=== PATIENT | male | born 1935 | race Caucasian/White ===

== ENCOUNTER 2016-08-16 11:00 | Inpatient (IN) | payer MEDICARE, OTHER ==
[~2016-08-16 11:00] MED LIST: ENOXAPARIN SODIUM INJ 40 MG/0.4 ML DISP.SYRIN SUBCUT ONE
--- NOTE | 2016-08-16 11:23 | ER Document Report ---
ED Fever - General Stated Complaint: WEAKNESS Mode of Arrival: Medic Information source: Patient, Relative Cannot obtain history due to: Dementia - MILD TRAVEL OUTSIDE OF THE [place] IN LAST 30 DAYS: No - HPI Onset: This morning Onset/Duration: Sudden Quality of pain: No pain Severity: Moderate Context: Congestion, Cough Associated symptoms: Chills, Nonproductive cough, Fever, Sweating, Weakness. denies: Diarrhea, Vomiting, Shortness of breath Similar symptoms previously: Yes - NOT RECENT Recently seen / treated by doctor: No - Related Data Allergies/Adverse Reactions: No Known Allergies Allergy (Verified 08/16/16 11:25) Home Medications: Current Home Medications Apixaban [Eliquis 5 mg Tablet] 1 tab PO BID 08/16/16 [History] Docusate Sodium 100 mg PO BID 08/16/16 [History] Folic Acid/Vit Bcomp,C [B-Complex with Vit C Tablet] 400 mcg PO DAILY 08/16/16 [ History] Mineral Oil/Petrolatum,White [Eucerin Creme] 1 applic TOP BID 08/16/16 [History] Rivastigmine [Exelon 4.6 Mg/24 Hr Transdermal Patch] 1 each TD DAILY 08/16/16 [ History] Triamcinolone Acetonide [Aristocort 0.5% Cream 15 gm] 1 applic TOP BID 08/16/16 [History] Past Medical History - General Information source: Patient, Relative - Social History Smoking Status: Former Smoker Cigarette use (# per day): No Chew tobacco use (# tins/day): No Smoking Education Provided: No Frequency of alcohol use: None Drug Abuse: None Lives with: [facility] [place] [place] Family History: Reviewed & Not Pertinent Patient has suicidal ideation: No Patient has homicidal ideation: No - Past Medical History Cardiac Medical History: Reports: Hx Coronary Artery Disease - BY PASS/ HX A-FIB , Hx Hypertension Denies: Hx Heart Attack Pulmonary Medical History: Denies: Hx Asthma, Hx Bronchitis, Hx COPD, Hx Pneumonia EENT Medical History: Reports: None Neurological Medical History: Denies: Hx Cerebrovascular Accident, Hx Seizures Endocrine Medical History: Reports: Hx Hypothyroidism Renal/ Medical History: Reports: None Malignancy Medical History: Reports None GI Medical History: Reports: None Musculoskeltal Medical History: Reports Hx Arthritis - GENERALIZED Psychiatric Medical History: Reports: None Past Surgical History: Reports: Hx Carotid Endarterectomy, Hx Coronary Artery Bypass Graft, Hx Orthopedic Surgery. Denies: Hx Pacemaker - Immunizations Hx Diphtheria, Pertussis, Tetanus Vaccination: Yes Hx Pneumococcal Vaccination: 07/19/15 Review of Systems - Review of Systems Constitutional: See HPI EENT: No symptoms reported Cardiovascular: No symptoms reported Respiratory: See HPI Gastrointestinal: No symptoms reported Genitourinary: No symptoms reported Musculoskeletal: No symptoms reported Skin: No symptoms reported Neurological/Psychological: No symptoms reported Physical Exam - Vital signs Vitals: Temp Pulse Resp BP Pulse Ox 102.2 F H 92 20 126/55 H 87 L 08/16/16 11:00 08/16/16 11:00 08/16/16 11:00 08/16/16 11:00 08/16/16 11:00 Interpretation: Hypoxic, Febrile - General General appearance: Appears well, Alert In distress: None - HEENT Head: Normocephalic Eyes: Normal Conjunctiva: Normal Ears: Normal Nasal: Normal Mouth/Lips: Normal Mucous membranes: Normal Pharynx: Normal Neck: Normal - Respiratory Respiratory status: No respiratory distress Chest status: Nontender Breath sounds: Productive cough, Rales - BOTH BASES AND R. UPPER LOBE. No: Wheezing - Cardiovascular Rhythm: Irregularly irregular - Abdominal Inspection: Normal Distension: No distension Bowel sounds: Hypoactive Tenderness: Nontender - Extremities General upper extremity: Normal inspection General lower extremity: Edema - 1+, BILAT. (CHRONIC). No: Normal inspection - Neurological Neuro grossly intact: Yes Cognition: Normal Orientation: AAOx4 - Psychological Associated symptoms: Normal affect, Normal mood - Skin Skin Temperature: Warm Skin Moisture: Dry Skin Color: Normal Skin Turgor: Elastic Skin irregularity: Rash - SCALP Course - Vital Signs Vital signs: Temp Pulse Resp BP Pulse Ox 102.2 F H 92 20 125/62 90 L 08/16/16 11:00 08/16/16 11:00 08/16/16 13:16 08/16/16 13:16 08/16/16 13:16 - Laboratory Result Diagrams: 08/16/16 11:15 08/16/16 11:15 Laboratory results interpreted by me: 08/16/16 08/16/16 08/16/16 11:15 11:15 11:15 WBC 11.9 H RBC 4.10 L Hgb 12.4 L Hct 37.8 L RDW 15.8 H Seg Neutrophils % 88.2 H Lymphocytes % 4.1 L Absolute Neutrophils 10.5 H PT 23.5 H VBG pH Potassium 3.4 L Chloride 97 L BUN 28 H Creatinine 1.53 H Est GFR ( Amer) 53 L Est GFR (Non-Af Amer) 44 L Glucose 142 H Lactic Acid Total Bilirubin 1.6 H NT-Pro-B Natriuret Pep Albumin 3.2 L Urine Protein Urine Ascorbic Acid 08/16/16 08/16/16 08/16/16 11:15 11:15 12:23 WBC RBC Hgb Hct RDW Seg Neutrophils % Lymphocytes % Absolute Neutrophils PT VBG pH 7.47 H Potassium Chloride BUN Creatinine Est GFR ( Amer) Est GFR (Non-Af Amer) Glucose Lactic Acid 2.7 H Total Bilirubin NT-Pro-B Natriuret Pep 855 H Albumin Urine Protein Urine Ascorbic Acid 08/16/16 13:15 WBC RBC Hgb Hct RDW Seg Neutrophils % Lymphocytes % Absolute Neutrophils PT VBG pH Potassium Chloride BUN Creatinine Est GFR ( Amer) Est GFR (Non-Af Amer) Glucose Lactic Acid Total Bilirubin NT-Pro-B Natriuret Pep Albumin Urine Protein 30 H Urine Ascorbic Acid 20 H - EKG Interpretation by [place] EKG shows normal: [place], QRS Complexes. abnormal: Sinus rhythm, Intervals, ST-T Waves - LAT. T WAVE INVERSIONS, BORDERLINE LONG QT Rate: Normal Rhythm: NSR, A.Fib P Waves: LAE - Consults DR. BEACH Time consulted: 12:00 Reason for consultation: 08/16/16 12:01 CONSIDER FOR ADMISSION Consulted provider: will come to ER Discharge - Discharge Clinical Impression: Hypoxemia, Atrial fibrillation with controlled ventricular response Pneumonia Qualifiers: Pneumonia type: due to unspecified organism Laterality: right Lung location: upper lobe of lung Qualified Code(s): J18.1 - Lobar pneumonia, unspecified organism Condition: Fair Disposition: ADMITTED INPATIENT Admitting Provider: Hospitalist Unit Admitted: Telemetry
[2016-08-16 11:38] LABS: ABSOLUTE LYMPHOCYTES (AUTO) 0.5 10^3/uL (0.5-4.7); ABSOLUTE MONOCYTES (AUTO) 0.9 10^3/uL (0.1-1.4); ABSOLUTE NEUT (AUTO) 10.5 10^3/uL (1.7-8.2); BASOPHILS % (AUTO) 0.2 % (0-2); HEMATOCRIT 37.8 % (37.9-51.0); HEMOGLOBIN 12.4 g/dL (13.5-17.0); HGB HCT DIFFERENCE -0.6; LYMPHOCYTES % (AUTO) 4.1 % (13-45); MEAN CORPUSCULAR HEMOGLOBIN 30.3 pg (27.0-33.4); MEAN CORPUSCULAR HGB CONC 32.9 g/dL (32.0-36.0); MEAN CORPUSCULAR VOLUME 92 fl (80-97); MONOCYTES % (AUTO) 7.5 % (3-13); RED CELL DISTRIBUTION WIDTH 15.8 % (11.5-14.0); SEGMENTED NEUTROPHILS % (AUTO) 88.2 % (42-78); WHITE BLOOD COUNT 11.9 10^3/uL (4.0-10.5)
[2016-08-16 11:41] LABS: PROTHROMBIN TIME 23.5 SEC (11.4-15.4)
[2016-08-16] MEDS ORDERED: LEVOFLOXACIN 750 MG/D5W RTU 150 ML IV ONE (11:42)
[2016-08-16 11:56] LABS: ALANINE AMINOTRANSFERASE 31 U/L (21-72); ALBUMIN 3.2 g/dL (3.5-5.0); ALKALINE PHOSPHATASE 61 U/L (38-126); ANION GAP 16 (5-19); ASPARTATE AMINO TRANSFERASE 32 U/L (17-59); BILIRUBIN,TOTAL 1.6 mg/dL (0.2-1.3); BLOOD UREA NITROGEN 28 mg/dL (7-20); CALCIUM 8.5 mg/dL (8.4-10.2); CARBON DIOXIDE 25 mmol/L (22-30); CHLORIDE 97 mmol/L (98-107); CREATININE RESULT 1.53 mg/dL (0.52-1.25); GLUCOSE 142 mg/dL (75-110); POTASSIUM 3.4 mmol/L (3.6-5.0); SODIUM 138.1 mmol/L (137-145); TOTAL PROTEIN 6.4 g/dL (6.3-8.2)
[2016-08-16] MEDS ORDERED: NORMAL SALINE 1000 ML 300 ML IV ONE (12:06)
[2016-08-16 12:44] LABS: VENOUS BLOOD BASE EXCESS 3.9 mmol/L; VENOUS BLOOD HCO3 27.7 mmol/L (20-32); VENOUS BLOOD PH 7.47 (7.30-7.42)
[2016-08-16 13:33] LABS: APPEARANCE,URINE CLEAR; BILIRUBIN,URINE NEGATIVE (NEGATIVE); GLUCOSE, URINE NEGATIVE (NEGATIVE); KETONES,URINE NEGATIVE (NEGATIVE); LEUKOCYTE ESTERASE,URINE NEGATIVE (NEGATIVE); NITRITE,URINE NEGATIVE (NEGATIVE); PROTEIN,URINE 30 mg/dL (NEGATIVE); URINE SPECIFIC GRAVITY 1.013; UROBILINOGEN,URINE NEGATIVE mg/dL (<2.0)
[2016-08-16] MEDS ORDERED: IPRATROPIUM/ALBUTEROL 0.5-2.5 MG/3 ML AMPUL NEB PRN (13:56)
[2016-08-16] MEDS ORDERED: ACETAMINOPHEN 325 MG TABLET PO PRN (14:01)
[2016-08-16] MEDS ORDERED: POTASSIUM CHLORIDE 10 MEQ TABLET.SA PO ONE (14:16)
[2016-08-16] MEDS ORDERED: NORMAL SALINE 1000 ML 1,000 ML IV ONE (14:29)
--- NOTE | 2016-08-16 14:34 | PDOC H&P ---
History of Present Illness Admission Date/PCP: FREDY RICKS Patient complains of: Shortness of breath History of Present Illness: ANICETO LAYNE is a 81 year old male, with hypertension, coronary artery disease, atrial fibrillation sent to the hospital from the [facility] home due to cough 2 days duration. It is productive of [place] sputum with associated chest congestion, intermittent wheezing, and shortness of breath. Patient denies paroxysmal nocturnal dyspnea, dyspnea, chest pain, nor any increase in lower extremity swelling. There is no definite fever but he feels warm at times. There is no diarrhea, sore throat, sinus congestion, sneezing. The patient reported his symptoms to the staff and the patient was sent to the hospital for evaluation where chest x-ray revealed patchy infiltrates bilateral more on the right with a fever of 102. Intravenous fluid was given likewise Levaquin and was referred for admission. Past Medical History Cardiac Medical History: Reports: Atrial Fibrillation, Congestive Heart Failure , Coronary Artery Disease - BY PASS/ HX A-FIB, Hyperlipidema, Hypertension Denies: Myocardial Infarction Pulmonary Medical History: Denies: Asthma, Bronchitis, Chronic Obstructive Pulmonary Disease (COPD), Pneumonia EENT Medical History: Reports: None Neurological Medical History: Denies: Seizures Endocrine Medical History: Reports: Hypothyroidism Renal/ Medical History: Reports: None Malignancy Medical History: Reports: None GI Medical History: Reports: None Musculoskeltal Medical History: Reports: Arthritis - GENERALIZED Psychiatric Medical History: Reports: None Hematology: Reports: Anemia - B 12 SHOTS Past Surgical History Past Surgical History: Reports: Cardiac Catheterization, Carotid Endarterectomy , Coronary Artery Bypass Graft, Orthopedic Surgery Denies: Pacemaker Social History Information Source: Patient Lives with: [facility] [place] Smoking Status: Former Smoker Frequency of Alcohol Use: None Hx Recreational Drug Use: No Drugs: None Hx Prescription Drug Abuse: No Family History Family History: None Parental Family History Reviewed: Yes Children Family History Reviewed: Yes Sibling(s) Family History Reviewed.: Yes Medication/Allergy Home Medications: Amiodarone HCl 200 mg PO DAILY 05/12/16 Atorvastatin Calcium 80 mg PO QHS 05/12/16 Ciclopirox Olamine [Ciclopirox] 1 applic TOP BID PRN 05/12/16 Furosemide [Lasix 80 mg Tablet] 1 tab PO DAILY 05/12/16 Levothyroxine Sodium [Synthroid] 175 mcg PO DAILY 05/12/16 Metoprolol Tartrate [Lopressor 50 mg Tablet] 50 mg PO DAILY 05/12/16 Potassium Chloride [Klor-Con 10] 20 meq PO DAILY 05/12/16 Tamsulosin HCl [Flomax 0.4 mg Cap.sr] 0.4 mg PO QHS 05/12/16 Triamterene/Hydrochlorothiazid [Maxzide 75 mg-50 mg Tablet] 0.5 tab PO DAILY Apixaban [Eliquis 5 mg Tablet] 1 tab PO BID 08/16/16 Docusate Sodium 100 mg PO BID 08/16/16 Folic Acid/Vit Bcomp,C [B-Complex with Vit C Tablet] 400 mcg PO DAILY 08/16/16 Mineral Oil/Petrolatum,White [Eucerin Creme] 1 applic TOP BID 08/16/16 Rivastigmine [Exelon 4.6 Mg/24 Hr Transdermal Patch] 1 each TD DAILY 08/16/16 Triamcinolone Acetonide [Aristocort 0.5% Cream 15 gm] 1 applic TOP BID 08/16/16 Allergies/Adverse Reactions: No Known Allergies Allergy (Verified 08/16/16 11:25) Review of Systems Constitutional: PRESENT: weakness - Generalized. ABSENT: chills, fever(s), headache(s), weight gain, weight loss Eyes: ABSENT: visual disturbances Ears: ABSENT: hearing changes Nose, Mouth, and Throat: ABSENT: mouth pain, sore throat Cardiovascular: PRESENT: dyspnea on exertion, palpitations. ABSENT: chest pain , edema, orthropnea Respiratory: PRESENT: cough, sputum - [place]. ABSENT: hemoptysis Gastrointestinal: ABSENT: abdominal pain, constipation, diarrhea, hematemesis, hematochezia, melena, nausea, vomiting Genitourinary: ABSENT: dysuria, hematuria Musculoskeletal: ABSENT: joint swelling Integumentary: ABSENT: pruritus, rash, wounds Neurological: ABSENT: abnormal gait, abnormal speech, confusion, dizziness, focal weakness, syncope Psychiatric: ABSENT: anxiety, depression, homidical ideation, suicidal ideation Endocrine: ABSENT: cold intolerance, heat intolerance, polydipsia, polyuria Hematologic/Lymphatic: ABSENT: easy bleeding, easy bruising Physical Exam Vital Signs: Temp Pulse Resp BP Pulse Ox 102.2 F H 92 20 125/62 90 L 08/16/16 11:00 08/16/16 11:00 08/16/16 13:16 08/16/16 13:16 08/16/16 13:16 Intake & Output 08/15/16 08/16/16 08/17/16 06:59 06:59 06:59 Weight 118.115 kg General appearance: PRESENT: no acute distress, cooperative, mild distress, other - Overweight Head exam: PRESENT: atraumatic, normocephalic Eye exam: PRESENT: conjunctiva pink, EOMI, PERRLA. ABSENT: scleral icterus Ear exam: PRESENT: normal external ear exam. ABSENT: drainage Mouth exam: PRESENT: moist, neck supple, tongue midline Throat exam: ABSENT: post pharyngeal erythema, tonsillar erythema, tonsillar exudate Neck exam: ABSENT: carotid bruit, JVD, lymphadenopathy, thyromegaly Respiratory exam: PRESENT: decreased breath sounds - Bilateral, rales - Right- sided posteriorly. ABSENT: rhonchi, wheezes Cardiovascular exam: PRESENT: irregular rhythm, +S1, +S2. ABSENT: diastolic murmur, gallop, rubs, systolic murmur Pulses: PRESENT: normal dorsalis pedis pul Vascular exam: PRESENT: normal capillary refill GI/Abdominal exam: PRESENT: normal bowel sounds, soft. ABSENT: distended, guarding, mass, organolmegaly, rebound, tenderness Rectal exam: PRESENT: deferred Extremities exam: PRESENT: full ROM, +1 edema - Bilateral. ABSENT: calf tenderness, clubbing Neurological exam: PRESENT: alert, awake, oriented to person, oriented to place , oriented to time, oriented to situation Psychiatric exam: PRESENT: appropriate affect, normal mood. ABSENT: homicidal ideation, suicidal ideation Skin exam: PRESENT: dry, warm. ABSENT: cyanosis, rash Results Laboratory Results: 08/16/16 11:15 08/16/16 11:15 08/16/16 08/16/16 08/16/16 11:15 11:15 11:15 WBC 11.9 H RBC 4.10 L Hgb 12.4 L Hct 37.8 L MCV 92 MCH 30.3 MCHC 32.9 RDW 15.8 H Plt Count 283 Seg Neutrophils % 88.2 H Lymphocytes % 4.1 L Monocytes % 7.5 Eosinophils % 0.0 Basophils % 0.2 Absolute Neutrophils 10.5 H Absolute Lymphocytes 0.5 Absolute Monocytes 0.9 Absolute Eosinophils 0.0 Absolute Basophils 0.0 VBG pH VBG pCO2 VBG HCO3 VBG Base Excess Sodium 138.1 Potassium 3.4 L Chloride 97 L Carbon Dioxide 25 Anion Gap 16 BUN 28 H Creatinine 1.53 H Est GFR ( Amer) 53 L Est GFR (Non-Af Amer) 44 L Glucose 142 H Lactic Acid 2.7 H Calcium 8.5 Total Bilirubin 1.6 H AST 32 ALT 31 Alkaline Phosphatase 61 Total Protein 6.4 Albumin 3.2 L Urine Color Urine Appearance Urine pH Ur Specific [place] Urine Protein Urine Glucose (UA) Urine Ketones Urine Blood Urine Nitrite Ur Leukocyte Esterase Urine WBC (Auto) Urine RBC (Auto) 08/16/16 08/16/16 12:23 13:15 WBC RBC Hgb Hct MCV MCH MCHC RDW Plt Count Seg Neutrophils % Lymphocytes % Monocytes % Eosinophils % Basophils % Absolute Neutrophils Absolute Lymphocytes Absolute Monocytes Absolute Eosinophils Absolute Basophils VBG pH 7.47 H VBG pCO2 39.0 VBG HCO3 27.7 VBG Base Excess 3.9 Sodium Potassium Chloride Carbon Dioxide Anion Gap BUN Creatinine Est GFR ( Amer) Est GFR (Non-Af Amer) Glucose Lactic Acid Calcium Total Bilirubin AST ALT Alkaline Phosphatase Total Protein Albumin Urine Color YELLOW Urine Appearance CLEAR Urine pH 5.0 Ur Specific [place] 1.013 Urine Protein 30 H Urine Glucose (UA) NEGATIVE Urine Ketones NEGATIVE Urine Blood NEGATIVE Urine Nitrite NEGATIVE Ur Leukocyte Esterase NEGATIVE Urine WBC (Auto) 0 Urine RBC (Auto) 1 08/16/16 11:15 NT-Pro-B Natriuret Pep 855 H Impressions: Chest X-Ray 08/16/16 11:07 IMPRESSION: Pneumonia or asymmetric edema. Assessment & Plan - Diagnosis (1) Pneumonia Qualifiers: Pneumonia type: due to unspecified organism Laterality: right Lung location: upper lobe of lung Qualified Code(s): J18.1 - Lobar pneumonia, unspecified organism Is this a current diagnosis for this admission?: Yes (2) Hypokalemia Is this a current diagnosis for this admission?: Yes (3) Hyperglycemia Is this a current diagnosis for this admission?: Yes (4) Atrial fibrillation with controlled ventricular response Is this a current diagnosis for this admission?: Yes (5) Hypertension Qualifiers: Hypertension type: essential hypertension Qualified Code(s): I10 - Essential (primary) hypertension Is this a current diagnosis for this admission?: Yes (6) Hypothyroidism (acquired) Is this a current diagnosis for this admission?: Yes (7) Coronary artery disease Qualifiers: Coronary Disease-Associated Artery/Lesion type: [place] artery [place] vs. transplanted heart: [place] heart Associated angina: without angina Qualified Code(s): I25.10 - Atherosclerotic heart disease of [place] coronary artery without angina pectoris Is this a current diagnosis for this admission?: Yes - Time Time Spent: 50 to 70 Minutes Anticipated discharge: Home Within: within 72 hours - Inpatient Certification Based on my medical assessment, after consideration of the patient's comorbidities, presenting symptoms, or acuity I expect that the services needed warrant INPATIENT care.: Yes I certify that my determination is in accordance with my understanding of Medicare's requirements for reasonable and necessary INPATIENT services [42 CFR 412.3e].: Yes Medical Necessity: Significant Comorbidiites Make Outpatient Treatment Too Risky , Need Close Monitoring Due to Risk of Patient Decompensation, Need For IV Fluids, Need For Continuous Telemetry Monitoring, Need for IV Antibiotics 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 We will follow the pneumonia pathway. Blood culture and sputum cultures will be done. Begin antibiotics with cefepime and Levaquin. In the meantime we will replace potassium. Monitor electrolytes and obtain hemoglobin A1c. Supplemental oxygen will be continued and DVT prophylaxis with Lovenox will be started. Continue long-term anticoagulation. Further testing depends on the initial evaluation and response to treatment as outlined above.
[2016-08-16] MEDS ORDERED: ENOXAPARIN SODIUM INJ 40 MG/0.4 ML DISP.SYRIN SUBCUT ONE ×2 (15:45→16:30)
[2016-08-16] MEDS: NORMAL SALINE 1000 ML 1,000 ML IV PRN (16:05)
[2016-08-16] MEDS: LEVALBUTEROL HCL NEB 1.25 MG/3 ML AMPUL NEB PRN ×3 (16:06→23:43)
[2016-08-16] MEDS ORDERED: ASPIRIN 81 MG TABLET, CHEWABLE PO ONE (19:00)
[2016-08-16 20:24] LABS: CREATINE KINASE MB 2.3 ng/mL (<4.55); TROPONIN I 0.029 ng/mL
[2016-08-16] MEDS ORDERED: CEFEPIME 2 GM/D5W RTU 50 ML IV SCH (22:00)
[2016-08-16] MEDS: GUAIFENESIN 600 MG TABLET.SA PO SCH (22:01)
[2016-08-16] MEDS: APIXABAN 5 MG TABLET PO SCH (22:02)
[2016-08-16] MEDS: ATORVASTATIN CALCIUM 80 MG TABLET PO SCH (22:02)
[2016-08-16] MEDS: TAMSULOSIN HCL 0.4 MG CAP.SR.24H PO SCH (22:07)
[2016-08-16] MEDS: TRIAMCINOLONE ACETONIDE 0.5% CREAM 15 GM TOP SCH (22:11)
--- NOTE | 2016-08-16 22:53 | EKG REPORT ---
SEVERITY:- ABNORMAL ECG - SINUS RHYTHM PROBABLE LEFT ATRIAL ABNORMALITY CONSIDER POSTERIOR INFARCT ABNORMAL T, CONSIDER ISCHEMIA, LATERAL LEADS BORDERLINE PROLONGED QT INTERVAL : Confirmed by: Rosalie Baird MD 16-Aug-2016 22:52:58
[2016-08-16] MEDS ORDERED: CEFEPIME 2 GM/D5W RTU 2 GM/50 ML RTUPB IV ONE (22:57)
[2016-08-16 23:22] LABS: TROPONIN I 0.03 ng/mL
[2016-08-16 23:28] LABS: CREATINE KINASE MB 2.12 ng/mL (<4.55)
[2016-08-17 03:26] LABS: ABSOLUTE LYMPHOCYTES (AUTO) 0.8 10^3/uL (0.5-4.7); ABSOLUTE NEUT (AUTO) 8.3 10^3/uL (1.7-8.2); BASOPHILS % (AUTO) 0.1 % (0-2); EOSINOPHILS % (AUTO) 0.1 % (0-6); HEMATOCRIT 33.6 % (37.9-51.0); HEMOGLOBIN 11.4 g/dL (13.5-17.0); HGB HCT DIFFERENCE 0.6; MEAN CORPUSCULAR HEMOGLOBIN 31.2 pg (27.0-33.4); MEAN CORPUSCULAR HGB CONC 33.9 g/dL (32.0-36.0); MEAN CORPUSCULAR VOLUME 92 fl (80-97); RED BLOOD COUNT 3.65 10^6/uL (4.35-5.55); RED CELL DISTRIBUTION WIDTH 16.1 % (11.5-14.0); SEGMENTED NEUTROPHILS % (AUTO) 81.8 % (42-78); WHITE BLOOD COUNT 10.1 10^3/uL (4.0-10.5)
[2016-08-17 03:57] LABS: ANION GAP 11 (5-19); BLOOD UREA NITROGEN 30 mg/dL (7-20); CARBON DIOXIDE 26 mmol/L (22-30); CHLORIDE 102 mmol/L (98-107); CREATINE KINASE 325 U/L (55-170); CREATININE RESULT 1.31 mg/dL (0.52-1.25); GLUCOSE 123 mg/dL (75-110); POTASSIUM 3.2 mmol/L (3.6-5.0); SODIUM 139.1 mmol/L (137-145)
[2016-08-17 04:08] LABS: CREATINE KINASE MB 1.96 ng/mL (<4.55); TROPONIN I 0.027 ng/mL
[2016-08-17] MEDS: LEVALBUTEROL HCL NEB 1.25 MG/3 ML AMPUL NEB PRN ×2 (04:10→05:16)
[2016-08-17] MEDS: LANSOPRAZOLE 30 MG TAB.RAP.DR PO SCH (05:30)
[2016-08-17] MEDS: NORMAL SALINE 1000 ML 1,000 ML IV PRN ×2 (06:24→21:15)
[2016-08-17] MEDS ORDERED: LEVALBUTEROL HCL NEB 1.25 MG/3 ML AMPUL NEB PRN (07:26)
[2016-08-17] MEDS ORDERED: ENOXAPARIN SODIUM INJ 40 MG/0.4 ML DISP.SYRIN SUBCUT SCH (08:00)
[2016-08-17] MEDS ORDERED: POTASSIUM CHLORIDE 10 MEQ TABLET.SA PO ONE (09:15)
[2016-08-17] MEDS: METOPROLOL TARTRATE 50 MG TABLET PO SCH (09:37)
[2016-08-17] MEDS: ASPIRIN 81 MG TABLET, CHEWABLE PO SCH (09:37)
[2016-08-17] MEDS: FUROSEMIDE 80 MG TABLET PO SCH (09:37)
[2016-08-17] MEDS: AMIODARONE HCL 200 MG TABLET PO SCH (09:37)
[2016-08-17] MEDS: LEVOTHYROXINE SODIUM 0.1 MG TABLET PO SCH (09:38)
[2016-08-17] MEDS: LEVOTHYROXINE SODIUM 0.075 MG TABLET PO SCH (09:38)
[2016-08-17] MEDS: POTASSIUM CHLORIDE 10 MEQ TABLET.SA PO SCH (09:38)
[2016-08-17] MEDS: GUAIFENESIN 600 MG TABLET.SA PO SCH ×2 (09:38→21:11)
[2016-08-17] MEDS: RIVASTIGMINE 4.6 MG/24 HR PATCH.TD24 TD SCH (09:40)
[2016-08-17] MEDS: CEFEPIME HCL 2 GM in DEXTROSE 5%-WATER 50 ML IV SCH ×2 (09:41→21:11)
[2016-08-17] MEDS ORDERED: (PENDING PHARMACY ID) (Levothyroxine Sodium [Synthroid] 175 MCG) PO SCH (10:00)
[2016-08-17] MEDS: TRIAMCINOLONE ACETONIDE 0.5% CREAM 15 GM TOP SCH ×2 (10:00→18:00)
[2016-08-17] MEDS ORDERED: (PENDING PHARMACY ID) (Amiodarone Hcl [Amiodarone Hcl] 200 MG) PO SCH (10:00)
[2016-08-17] MEDS: LEVOFLOXACIN 750 MG/D5W RTU 150 ML IV SCH (11:04)
--- NOTE | 2016-08-17 11:18 | PDOC PROGRESS REPORT ---
Subjective Progress Note for:: 08/17/16 Subjective:: The patient overall feels slightly better but still coughing and with some intermittent wheezing. Unable to sleep flat in bed. Denies being on oxygen at home. There is no temperature spikes this morning. No nausea or vomiting. No diarrhea. No pleurisy at this time. Patient reports history of COPD in the past. He is on 80 mg of Lasix daily. Physical Exam Vital Signs: Temp Pulse Resp BP Pulse Ox 98.0 F 89 16 147/58 H 93 08/17/16 07:40 08/17/16 08:30 08/17/16 08:30 08/17/16 07:40 08/17/16 08:30 Pulse Oximeter Continuous Start: 08/16/16 13: 58 Freq: RTQ4 Status: Active Document 08/17/16 08:30 [facility] [place] (Rec: 08/17/16 08:40 NSC [email or web address]) Pulse Oximetry Assessment Oxygen Saturation (92-100) 93 Oxygen Flow Rate (L/min) 1.5 Oxygen Delivery Method Nasal Cannula Fraction of Inspired Oxygen (FIO2) 26 Equipment Usage Equipment in Use Continuous SpO2 Machine # N 14 Additional RT Notes Other with [facility] student Shelia Coronel Intake & Output 08/16/16 08/17/16 08/18/16 06:59 06:59 06:59 Intake Total 2240 Output Total 975 Balance 1265 Weight 115 kg General appearance: PRESENT: no acute distress, cooperative, obese Head exam: PRESENT: normocephalic Eye exam: PRESENT: EOMI Mouth exam: PRESENT: moist, neck supple Neck exam: ABSENT: JVD Respiratory exam: PRESENT: crackles - Occasionally more on the right, wheezes - Minimal and mild bilateral Cardiovascular exam: PRESENT: RRR. ABSENT: gallop GI/Abdominal exam: PRESENT: hypoactive bowel sounds, soft. ABSENT: distended, tenderness Extremities exam: PRESENT: +1 edema Neurological exam: PRESENT: alert, awake, oriented to situation Skin exam: PRESENT: dry, warm. ABSENT: cyanosis Results Laboratory Results: 08/17/16 03:06 08/17/16 03:06 08/16/16 08/17/16 08/17/16 16:18 03:06 03:06 WBC 10.1 RBC 3.65 L Hgb 11.4 L Hct 33.6 L MCV 92 MCH 31.2 MCHC 33.9 RDW 16.1 H Plt Count 229 Seg Neutrophils % 81.8 H Lymphocytes % 8.0 L Monocytes % 10.0 Eosinophils % 0.1 Basophils % 0.1 Absolute Neutrophils 8.3 H Absolute Lymphocytes 0.8 Absolute Monocytes 1.0 Absolute Eosinophils 0.0 Absolute Basophils 0.0 Sodium 139.1 Potassium 3.2 L Chloride 102 Carbon Dioxide 26 Anion Gap 11 BUN 30 H Creatinine 1.31 H Est GFR ( Amer) > 60 Est GFR (Non-Af Amer) 53 L Glucose 123 H Lactic Acid 1.4 Calcium 8.0 L 08/16/16 08/16/16 08/16/16 19:39 19:39 22:40 Creatine Kinase 359 H 365 H CK-MB (CK-2) 2.30 Troponin I 0.029 08/16/16 08/17/16 08/17/16 22:40 03:06 03:06 Creatine Kinase 325 H CK-MB (CK-2) 2.12 1.96 Troponin I 0.030 0.027 Impressions: Chest X-Ray 08/16/16 11:07 IMPRESSION: Pneumonia or asymmetric edema. Assessment & Plan - Diagnosis (1) Pneumonia Qualifiers: Pneumonia type: due to unspecified organism Laterality: right Lung location: upper lobe of lung Qualified Code(s): J18.1 - Lobar pneumonia, unspecified organism Is this a current diagnosis for this admission?: Yes (2) Hypokalemia Is this a current diagnosis for this admission?: Yes (3) Hyperglycemia Is this a current diagnosis for this admission?: Yes (4) Atrial fibrillation with controlled ventricular response Is this a current diagnosis for this admission?: Yes (5) Hypertension Qualifiers: Hypertension type: essential hypertension Qualified Code(s): I10 - Essential (primary) hypertension Is this a current diagnosis for this admission?: Yes (6) Hypothyroidism (acquired) Is this a current diagnosis for this admission?: Yes (7) Coronary artery disease Qualifiers: Coronary Disease-Associated Artery/Lesion type: [place] artery [place] vs. transplanted heart: [place] heart Associated angina: without angina Qualified Code(s): I25.10 - Atherosclerotic heart disease of [place] coronary artery without angina pectoris Is this a current diagnosis for this admission?: Yes - Time Time Spent with patient: 25-34 minutes - Plan Summary Plan Summary: Continue current antibiotics. We will decrease intravenous fluids. We will try a dose of steroids and keep the bronchodilators scheduled. May have underlying COPD exacerbation as well. Continue oral Lasix for now. Continue supportive care. Follow-up chest x-ray in the morning. Await echocardiogram.
[2016-08-17] MEDS ORDERED: PREDNISONE 20 MG TABLET PO ONE (11:25)
[2016-08-17] MEDS: APIXABAN 5 MG TABLET PO SCH ×2 (11:29→18:07)
[2016-08-17] MEDS ORDERED: IPRATROPIUM/ALBUTEROL 0.5-2.5 MG/3 ML AMPUL NEB ONE (11:30)
[2016-08-17] MEDS: IPRATROPIUM/ALBUTEROL 0.5-2.5 MG/3 ML AMPUL NEB SCH ×2 (13:30→19:56)
--- NOTE | 2016-08-17 18:26 | XCELERA REPORT ---
[address] [address] Transthoracic Echocardiogram Report Name: ANICETO LAYNE Age: 81 yrs Gender: Male : 1935 Patient Status: Inpatient Patient Location: [id number]\S\[id number]\S\A Study Date: 08/17/2016 02:54 PM Height: 71 in Weight: 253 lb BSA: 2.3 m2 Procedure: A complete two-dimensional transthoracic echocardiogram was performed (2D, M-mode, spectral and color flow Doppler). The study was technically difficult with many images being suboptimal in quality. Reason For Study: chf, elevated BNP Ordering Physician: RACHEL BEACH Performed By: Kathy Godfrey Interpretation Summary The study was technically difficult with many images being suboptimal in quality. The left ventricular ejection fraction is normal. There is mild concentric left ventricular hypertrophy. The left ventricle is grossly normal size. Doppler measurements suggest impaired left ventricular relaxation, which is associated with grade I/IV or mild diastolic dysfunction Regional wall motion abnormalities cannot be excluded due to limited visualization. The right ventricular systolic function is normal. The left atrium is mildly dilated. The right atrium is normal in size There is no mitral valve stenosis. There is a trace to mild amount of mitral regurgitation There is no aortic valve stenosis No aortic regurgitation is present. There is a trace to mild amount of tricuspid regurgitation There is mild pulmonary hypertension by echo Right ventricular systolic pressure is estimated to be elevated at 30- 40mmHg. Minimal pericardial effusion. MMode/2D Measurements \T\ Calculations RVDd: 2.4 cm LVIDd: 5.0 cm FS: 29.6 % Ao root diam: 3.5 cm IVSd: 1.3 cm LVIDs: 3.5 cm EDV(Teich): 116.1 ml LVPWd: 1.2 cm ESV(Teich): 50.6 ml Ao root area: 9.6 cm2 EF(Teich): 56.4 % LA dimension: 4.5 cm Doppler Measurements \T\ Calculations MV E max neisha: MV P1/2t max neisha: Ao V2 max: LV V1 max P.6 cm/sec 68.6 cm/sec 110.4 cm/sec 3.4 mmHg MV A max neisha: MV P1/2t: 90.0 msec Ao max PG: LV V1 max: 77.0 cm/sec 4.9 mmHg 92.8 cm/sec MV E/A: 0.88 MVA(P1/2t): 2.4 cm2 MV dec slope: 223.3 cm/sec2 MV dec time: 0.31 sec PA V2 max: TR max neisha: 96.3 cm/sec 306.8 cm/sec PA max PG: TR max P.6 mmHg 3.7 mmHg Left Ventricle The left ventricle is grossly normal size. There is mild concentric left ventricular hypertrophy. The left ventricular ejection fraction is normal. Doppler measurements suggest impaired left ventricular relaxation, which is associated with grade I/IV or mild diastolic dysfunction. Regional wall motion abnormalities cannot be excluded due to limited visualization. Right Ventricle The right ventricle is grossly normal size. There is normal right ventricular wall thickness. The right ventricular systolic function is normal. Atria The right atrium is normal in size. The left atrium is mildly dilated. Interarterial septum not well visualized and not well dopplered. Cannot comment on ASD/PFO presence. Mitral Valve There is mild mitral annular calcification. There is no mitral valve stenosis. There is a trace to mild amount of mitral regurgitation. Aortic Valve The aortic valve is not well visualized secondary to technical limitations. There is no aortic valve stenosis. No aortic regurgitation is present. Tricuspid Valve The tricuspid valve is not well visualized, but is grossly normal. There is no tricuspid stenosis. There is a trace to mild amount of tricuspid regurgitation. There is mild pulmonary hypertension by echo. Right ventricular systolic pressure is estimated to be elevated at 30-40mmHg. Pulmonic Valve The pulmonic valve is not well visualized. Great Vessels The aortic root is not well visualized. The inferior vena cava appeared normal and decreased > 50% with respiration (RAP 5-10 mmHg). Effusions Minimal pericardial effusion. : RACHEL BEACH > Valdemar Soto
[2016-08-17] MEDS: ATORVASTATIN CALCIUM 80 MG TABLET PO SCH (21:10)
[2016-08-17] MEDS: TAMSULOSIN HCL 0.4 MG CAP.SR.24H PO SCH (21:11)
[2016-08-18] MEDS: IPRATROPIUM/ALBUTEROL 0.5-2.5 MG/3 ML AMPUL NEB SCH ×4 (01:25→20:05)
[2016-08-18] MEDS: LANSOPRAZOLE 30 MG TAB.RAP.DR PO SCH (05:16)
[2016-08-18 06:06] LABS: ANION GAP 12 (5-19); BLOOD UREA NITROGEN 29 mg/dL (7-20); CALCIUM 8.2 mg/dL (8.4-10.2); CARBON DIOXIDE 24 mmol/L (22-30); CHLORIDE 104 mmol/L (98-107); CREATININE RESULT 1.15 mg/dL (0.52-1.25); GLUCOSE 119 mg/dL (75-110); POTASSIUM 3.6 mmol/L (3.6-5.0); SODIUM 139.7 mmol/L (137-145)
[2016-08-18] MEDS: RIVASTIGMINE 4.6 MG/24 HR PATCH.TD24 TD SCH (09:17)
[2016-08-18] MEDS: POTASSIUM CHLORIDE 10 MEQ TABLET.SA PO SCH (09:17)
[2016-08-18] MEDS: FUROSEMIDE 80 MG TABLET PO SCH (09:18)
[2016-08-18] MEDS: LEVOTHYROXINE SODIUM 0.075 MG TABLET PO SCH (09:18)
[2016-08-18] MEDS: APIXABAN 5 MG TABLET PO SCH ×2 (09:18→17:41)
[2016-08-18] MEDS: AMIODARONE HCL 200 MG TABLET PO SCH (09:18)
[2016-08-18] MEDS: LEVOTHYROXINE SODIUM 0.1 MG TABLET PO SCH (09:19)
[2016-08-18] MEDS: LEVOFLOXACIN 750 MG/D5W RTU 150 ML IV SCH (09:19)
[2016-08-18] MEDS: GUAIFENESIN 600 MG TABLET.SA PO SCH ×2 (09:19→21:13)
[2016-08-18] MEDS: ASPIRIN 81 MG TABLET, CHEWABLE PO SCH (09:19)
[2016-08-18] MEDS: METOPROLOL TARTRATE 50 MG TABLET PO SCH (09:21)
[2016-08-18] MEDS: TRIAMCINOLONE ACETONIDE 0.5% CREAM 15 GM TOP SCH ×2 (10:00→17:42)
--- NOTE | 2016-08-18 10:41 | PDOC DISCHARGE SUMMARY ---
General - Admit/Disc Date/PCP Admission Date/Primary Care Provider: 08/16/16 13:57 FREDY RICKS Discharge Date: 08/18/16 - Discharge Diagnosis (1) Pneumonia Is this a current diagnosis for this admission?: YesSummary: Treated with cefepime and Levaquin initially. Will finish a course of Levaquin. All cultures have been negative up to date. (2) CHF (congestive heart failure) Is this a current diagnosis for this admission?: YesSummary: Diastolic congestive heart failure on echocardiogram. Treated with Lasix (3) Atrial fibrillation with controlled ventricular response Is this a current diagnosis for this admission?: Yes (4) Coronary artery disease Is this a current diagnosis for this admission?: Yes (5) Hypertension Is this a current diagnosis for this admission?: Yes (6) Hypokalemia Is this a current diagnosis for this admission?: Yes (7) Hypothyroidism (acquired) Is this a current diagnosis for this admission?: Yes - Additional Information Resuscitation Status: Do Not Resuscitate Discharge Diet: Cardiac Discharge Activity: Activity As Tolerated Home Medications: Amiodarone HCl 200 mg PO DAILY 05/12/16 Atorvastatin Calcium 80 mg PO QHS 05/12/16 Ciclopirox Olamine [Ciclopirox] 1 applic TOP BID PRN 05/12/16 Furosemide [Lasix 80 mg Tablet] 1 tab PO DAILY 05/12/16 Levothyroxine Sodium [Synthroid] 175 mcg PO DAILY 05/12/16 Metoprolol Tartrate [Lopressor 50 mg Tablet] 50 mg PO DAILY 05/12/16 Potassium Chloride [Klor-Con 10] 20 meq PO DAILY 05/12/16 Tamsulosin HCl [Flomax 0.4 mg Cap.sr] 0.4 mg PO QHS 05/12/16 Triamterene/Hydrochlorothiazid [Maxzide 75 mg-50 mg Tablet] 0.5 tab PO DAILY Apixaban [Eliquis 5 mg Tablet] 1 tab PO BID 08/16/16 Docusate Sodium 100 mg PO BID 08/16/16 Folic Acid/Vit Bcomp,C [B-Complex with Vit C Tablet] 400 mcg PO DAILY 08/16/16 Mineral Oil/Petrolatum,White [Eucerin Creme] 1 applic TOP BID 08/16/16 Rivastigmine [Exelon 4.6 mg/24 Hr Transdermal Patch] 1 each TD DAILY 08/16/16 Triamcinolone Acetonide [Aristocort 0.5% Cream 15 gm] 1 applic TOP BID 08/16/16 Acetaminophen [Tylenol 325 mg Tablet] 650 mg PO Q4HP PRN tablet 08/18/16 Aspirin [Aspirin 81 mg Chewable Tablet] 81 mg PO DAILY tab.chew 08/18/16 Ipratropium/Albuterol Sulfate [Duoneb 3 ml Ampul] 3 ml [facility] RTQ6 vial.[facility] Levofloxacin [Levaquin 750 mg Tablet] 750 mg PO DAILY #3 tablet 08/18/16 History of Present Illness History of Present Illness: ANICETO LAYNE is a 81 year old male who was a resident of [facility] who presented with shortness of breath and a cough for 2 days. He was also found to have a fever of 102 and bilateral pneumonia on chest x-ray when he presented. He was admitted for treatment of pneumonia. Hospital Course Hospital Course: 81-year-old gentleman who presented with cough and fever up to 102 and was found have bilateral pneumonia. Patient was started on cefepime and Levaquin. The patient had cultures and were negative. The patient had improvement in his respiratory status and he also did have symptoms suggestive of congestive heart failure an echocardiogram was done. The patient was found to have diastolic dysfunction and he is continued on his Levaquin. The patient and the day of discharge is back to his baseline status and he was ready for discharge. The patient had been at [facility] however he is going to the [facility] [place] as his is no longer able to care for him. The patient will complete a course of Levaquin for treatment of his pneumonia. His other medical problems were stable during this hospitalization. Physical Exam Vital Signs: Temp Pulse Resp BP Pulse Ox 98.1 F 74 24 H 118/49 L 94 08/18/16 08:04 08/18/16 08:04 08/18/16 08:04 08/18/16 08:04 08/18/16 08:04 Pulse Oximeter Continuous Start: 08/16/16 13: 58 Freq: RTQ4 Status: Active Document 08/18/16 07:45 [facility] [place] [facility] (Rec: 08/18/16 10:29 [facility] [id number]) Pulse Oximetry Assessment Oxygen Saturation (92-100) 95 Oxygen Delivery Method Room Air Fraction of Inspired Oxygen (FIO2) 21 Equipment Usage Equipment in Use Continuous SpO2 Machine # N 14 Intake & Output 08/17/16 08/18/16 08/19/16 06:59 06:59 06:59 Intake Total 2240 2924 Output Total 975 1450 Balance 1265 1474 Weight 115 kg 118.2 kg General appearance: PRESENT: no acute distress Eye exam: PRESENT: conjunctiva pink. ABSENT: scleral icterus Mouth exam: PRESENT: moist, tongue midline Neck exam: ABSENT: JVD Respiratory exam: PRESENT: crackles - Inspiratory crackles in the left base that improve with coughing. Cardiovascular exam: PRESENT: irregular rhythm. ABSENT: diastolic murmur, rubs , systolic murmur GI/Abdominal exam: PRESENT: normal bowel sounds, soft. ABSENT: distended, guarding, mass, organolmegaly, rebound, tenderness Extremities exam: ABSENT: calf tenderness, clubbing, pedal edema Neurological exam: PRESENT: alert, awake, oriented to person, oriented to place , oriented to time, oriented to situation Psychiatric exam: PRESENT: appropriate affect Skin exam: PRESENT: dry, intact, warm. ABSENT: cyanosis, rash Results Laboratory Results: 08/17/16 03:06 08/18/16 04:58 08/18/16 04:58 Sodium 139.7 Potassium 3.6 Chloride 104 Carbon Dioxide 24 Anion Gap 12 BUN 29 H Creatinine 1.15 Est GFR ( Amer) > 60 Est GFR (Non-Af Amer) > 60 Glucose 119 H Calcium 8.2 L 08/16/16 08/16/16 08/16/16 19:39 19:39 22:40 Creatine Kinase 359 H 365 H CK-MB (CK-2) 2.30 Troponin I 0.029 08/16/16 08/17/16 08/17/16 22:40 03:06 03:06 Creatine Kinase 325 H CK-MB (CK-2) 2.12 1.96 Troponin I 0.030 0.027 Impressions: Chest X-Ray 08/17/16 00:00 IMPRESSION: Multifocal airspace disease, edema versus pneumonia. Overall pattern is similar compared to 08/16/2016. Qualifiers PATEINT BEING DISCHARGED WITH ANY OF THE FOLLOWING DIAGNOSIS?: Heart Failure HF Pt being discharged on ACEI for LVEF less than 40%?: No Reason(s) for not prescribing ACEI:: Procedure not indicated HF Pt being discharged on ARBS for LVEF less than 40%?: No Reason(s) for not prescribing ARBS:: Procedure not indicated HF Pt with Afib discharged with Warfarin?: No Reason(s) for not prescribing Warfarin:: Medical Contraindication HF Pt discharged on evidence-based Beta Susan?: No Reason(s) for not prescribing evidence-based Beta Susan:: Medical Contraindication Plan Discharge Plan: Patient is discharged to the [facility] [place]. He will follow-up with his primary care in 1-2 weeks. Time Spent: Greater than 30 Minutes
[2016-08-18] MEDS: CEFEPIME HCL 2 GM in DEXTROSE 5%-WATER 50 ML IV SCH (14:28)
[2016-08-18] MEDS: ATORVASTATIN CALCIUM 80 MG TABLET PO SCH (21:13)
[2016-08-18] MEDS: TAMSULOSIN HCL 0.4 MG CAP.SR.24H PO SCH (21:13)
[2016-08-19] MEDS: CEFEPIME HCL 2 GM in DEXTROSE 5%-WATER 50 ML IV SCH (00:37)
[2016-08-19] MEDS: IPRATROPIUM/ALBUTEROL 0.5-2.5 MG/3 ML AMPUL NEB SCH ×4 (01:59→20:33)
[2016-08-19] MEDS: LANSOPRAZOLE 30 MG TAB.RAP.DR PO SCH (05:17)
[2016-08-19] MEDS: TRIAMCINOLONE ACETONIDE 0.5% CREAM 15 GM TOP SCH ×2 (10:00→18:00)
[2016-08-19] MEDS: FUROSEMIDE 80 MG TABLET PO SCH (11:11)
[2016-08-19] MEDS: GUAIFENESIN 600 MG TABLET.SA PO SCH ×2 (11:12→22:20)
[2016-08-19] MEDS: ASPIRIN 81 MG TABLET, CHEWABLE PO SCH (11:12)
[2016-08-19] MEDS: LEVOTHYROXINE SODIUM 0.075 MG TABLET PO SCH (11:12)
[2016-08-19] MEDS: METOPROLOL TARTRATE 50 MG TABLET PO SCH (11:13)
[2016-08-19] MEDS: POTASSIUM CHLORIDE 10 MEQ TABLET.SA PO SCH (11:13)
[2016-08-19] MEDS: LEVOFLOXACIN 750 MG TABLET PO SCH (11:13)
[2016-08-19] MEDS: LEVOTHYROXINE SODIUM 0.1 MG TABLET PO SCH (11:13)
[2016-08-19] MEDS: AMIODARONE HCL 200 MG TABLET PO SCH (11:13)
[2016-08-19] MEDS: APIXABAN 5 MG TABLET PO SCH ×2 (11:14→17:12)
[2016-08-19] MEDS: RIVASTIGMINE 4.6 MG/24 HR PATCH.TD24 TD SCH (11:14)
--- NOTE | 2016-08-19 14:34 | PDOC PROGRESS REPORT ---
Subjective Progress Note for:: 08/19/16 Subjective:: Complains of weakness. The patient was going to be discharged yesterday however he was so weak that I felt that it was not safe for him to be going to the [facility] and we will keep him until we can find a rehabilitation bed for him to do physical therapy Physical Exam Vital Signs: Temp Pulse Resp BP Pulse Ox 98.1 F 88 18 114/49 L 98 08/19/16 12:44 08/19/16 13:45 08/19/16 13:45 08/19/16 12:44 08/19/16 12:44 Pulse Oximeter Continuous Start: 08/16/16 13: 58 Freq: RTQ4 Status: Complete Document 08/18/16 14:00 [facility] [place] (Rec: 08/18/16 14:27 [facility] [place] [email or web address]) Pulse Oximetry Assessment Oxygen Saturation (92-100) 94 Oxygen Delivery Method Room Air Fraction of Inspired Oxygen (FIO2) 21 Equipment Usage Equipment Discontinued Continuous SpO2 Machine # N 14 Intake & Output 08/18/16 08/19/16 08/20/16 06:59 06:59 06:59 Intake Total 2924 2410 Output Total 1450 1575 Balance 1474 835 Weight 118.2 kg 118.5 kg General appearance: PRESENT: no acute distress Eye exam: PRESENT: conjunctiva pink. ABSENT: scleral icterus Neck exam: ABSENT: carotid bruit, JVD, lymphadenopathy, thyromegaly Respiratory exam: PRESENT: clear to auscultation jaycee. ABSENT: rales, rhonchi, wheezes Cardiovascular exam: PRESENT: RRR. ABSENT: diastolic murmur, rubs, systolic murmur GI/Abdominal exam: PRESENT: normal bowel sounds, soft. ABSENT: distended, guarding, mass, organolmegaly, rebound, tenderness Extremities exam: ABSENT: calf tenderness, clubbing, pedal edema Neurological exam: PRESENT: alert, awake, oriented to person, oriented to place , oriented to time, other - Slightly confused. Psychiatric exam: PRESENT: appropriate affect Skin exam: PRESENT: dry, intact, warm. ABSENT: cyanosis, rash Results Laboratory Results: 08/17/16 03:06 08/18/16 04:58 08/16/16 08/16/16 08/16/16 19:39 19:39 22:40 Creatine Kinase 359 H 365 H CK-MB (CK-2) 2.30 Troponin I 0.029 08/16/16 08/17/16 08/17/16 22:40 03:06 03:06 Creatine Kinase 325 H CK-MB (CK-2) 2.12 1.96 Troponin I 0.030 0.027 Impressions: Chest X-Ray 08/17/16 00:00 IMPRESSION: Multifocal airspace disease, edema versus pneumonia. Overall pattern is similar compared to 08/16/2016. Assessment & Plan - Diagnosis (1) Pneumonia Qualifiers: Pneumonia type: due to unspecified organism Laterality: right Lung location: upper lobe of lung Qualified Code(s): J18.1 - Lobar pneumonia, unspecified organism Is this a current diagnosis for this admission?: YesPlan: Patient is on Levaquin. (2) CHF (congestive heart failure) Is this a current diagnosis for this admission?: YesPlan: Patient is improving with Lasix and we'll continue with that. (3) Atrial fibrillation with controlled ventricular response Is this a current diagnosis for this admission?: YesPlan: Patient is in a regular rhythm today. (4) Coronary artery disease Qualifiers: Coronary Disease-Associated Artery/Lesion type: [place] artery [place] vs. transplanted heart: [place] heart Associated angina: without angina Qualified Code(s): I25.10 - Atherosclerotic heart disease of [place] coronary artery without angina pectoris Is this a current diagnosis for this admission?: Yes (5) Hypertension Qualifiers: Hypertension type: essential hypertension Qualified Code(s): I10 - Essential (primary) hypertension Is this a current diagnosis for this admission?: Yes (6) Hypokalemia Is this a current diagnosis for this admission?: Yes (7) Hypothyroidism (acquired) Is this a current diagnosis for this admission?: Yes - Time Time Spent with patient: 25-34 minutes - Plan Summary Plan Summary: Awaiting rehabilitation placement.
[2016-08-19] MEDS: ATORVASTATIN CALCIUM 80 MG TABLET PO SCH (22:20)
[2016-08-19] MEDS: TAMSULOSIN HCL 0.4 MG CAP.SR.24H PO SCH (22:20)
[2016-08-19] MEDS: NORMAL SALINE 1000 ML 1,000 ML IV PRN (22:21)
[2016-08-20] MEDS: IPRATROPIUM/ALBUTEROL 0.5-2.5 MG/3 ML AMPUL NEB SCH ×3 (01:22→13:56)
[2016-08-20] MEDS: LANSOPRAZOLE 30 MG TAB.RAP.DR PO SCH (05:25)
[2016-08-20] MEDS: TRIAMCINOLONE ACETONIDE 0.5% CREAM 15 GM TOP SCH (10:00)
[2016-08-20] MEDS: POTASSIUM CHLORIDE 10 MEQ TABLET.SA PO SCH (10:15)
[2016-08-20] MEDS: LEVOTHYROXINE SODIUM 0.075 MG TABLET PO SCH (10:15)
[2016-08-20] MEDS: GUAIFENESIN 600 MG TABLET.SA PO SCH (10:16)
[2016-08-20] MEDS: LEVOFLOXACIN 750 MG TABLET PO SCH (10:16)
[2016-08-20] MEDS: ASPIRIN 81 MG TABLET, CHEWABLE PO SCH (10:16)
[2016-08-20] MEDS: LEVOTHYROXINE SODIUM 0.1 MG TABLET PO SCH (10:16)
[2016-08-20] MEDS: FUROSEMIDE 80 MG TABLET PO SCH (10:17)
[2016-08-20] MEDS: AMIODARONE HCL 200 MG TABLET PO SCH (10:17)
[2016-08-20] MEDS: APIXABAN 5 MG TABLET PO SCH (10:18)
[2016-08-20] MEDS: RIVASTIGMINE 4.6 MG/24 HR PATCH.TD24 TD SCH (10:18)
[2016-08-20] MEDS: METOPROLOL TARTRATE 50 MG TABLET PO SCH (10:19)
--- NOTE | 2016-08-20 10:33 | PDOC DISCHARGE SUMMARY ---
General - Admit/Disc Date/PCP Admission Date/Primary Care Provider: 08/16/16 13:57 FREDY RICKS Discharge Date: 08/20/16 - Discharge Diagnosis (1) Pneumonia Is this a current diagnosis for this admission?: YesSummary: Cultures negative. Patient will finish out a course of Levaquin. (2) CHF (congestive heart failure) Is this a current diagnosis for this admission?: YesSummary: Acute on chronic diastolic dysfunction. (3) Atrial fibrillation with controlled ventricular response Is this a current diagnosis for this admission?: Yes (4) Coronary artery disease Is this a current diagnosis for this admission?: Yes (5) Hypertension Is this a current diagnosis for this admission?: Yes (6) Hypokalemia Is this a current diagnosis for this admission?: Yes (7) Hypothyroidism (acquired) Is this a current diagnosis for this admission?: Yes - Additional Information Resuscitation Status: Do Not Resuscitate Discharge Diet: Cardiac Discharge Activity: Activity As Tolerated Home Medications: Amiodarone HCl 200 mg PO DAILY 05/12/16 Atorvastatin Calcium 80 mg PO QHS 05/12/16 Ciclopirox Olamine [Ciclopirox] 1 applic TOP BID PRN 05/12/16 Furosemide [Lasix 80 mg Tablet] 1 tab PO DAILY 05/12/16 Levothyroxine Sodium [Synthroid] 175 mcg PO DAILY 05/12/16 Metoprolol Tartrate [Lopressor 50 mg Tablet] 50 mg PO DAILY 05/12/16 Potassium Chloride [Klor-Con 10] 20 meq PO DAILY 05/12/16 Tamsulosin HCl [Flomax 0.4 mg Cap.sr] 0.4 mg PO QHS 05/12/16 Triamterene/Hydrochlorothiazid [Maxzide 75 mg-50 mg Tablet] 0.5 tab PO DAILY Apixaban [Eliquis 5 mg Tablet] 1 tab PO BID 08/16/16 Docusate Sodium 100 mg PO BID 08/16/16 Folic Acid/Vit Bcomp,C [B-Complex with Vit C Tablet] 400 mcg PO DAILY 08/16/16 Mineral Oil/Petrolatum,White [Eucerin Creme] 1 applic TOP BID 08/16/16 Rivastigmine [Exelon 4.6 mg/24 Hr Transdermal Patch] 1 each TD DAILY 08/16/16 Triamcinolone Acetonide [Aristocort 0.5% Cream 15 gm] 1 applic TOP BID 08/16/16 Acetaminophen [Tylenol 325 mg Tablet] 650 mg PO Q4HP PRN tablet 08/18/16 Aspirin [Aspirin 81 mg Chewable Tablet] 81 mg PO DAILY tab.chew 08/18/16 Ipratropium/Albuterol Sulfate [Duoneb 3 ml Ampul] 3 ml [facility] RTQ6 vial.neb Levofloxacin [Levaquin 750 mg Tablet] 750 mg PO DAILY #3 tablet 08/18/16 History of Present Illness History of Present Illness: ANICETO LAYNE is a 81 year old male who was a resident of [facility] who presented with shortness of breath and a cough for 2 days. He was also found to have a fever of 102 and bilateral pneumonia on chest x-ray when he presented. He was admitted for treatment of pneumonia. Hospital Course Hospital Course: 81-year-old gentleman who presented with cough and fever of 102. Patient was found to have bilateral pneumonia. Patient was started on cefepime and Levaquin. The patient has had cultures drawn and they have all been negative. The patient had improvement in his respiratory status and he did also have symptoms suggestive case of heart failure and an echocardiogram was done. The patient was found to have diastolic dysfunction and he is continuing with his Lasix. The patient initially was going to be discharged 2 days ago however he felt he was too weak to go home and decision was made to send him to rehabilitation for physical therapy. The patient will be going to [facility] for physical therapy for rehabilitation. His is elderly and is no longer able to care for him at home and he will probably go to the [facility] after he finishes rehabilitation. Physical Exam Vital Signs: Temp Pulse Resp BP Pulse Ox 97.8 F 90 18 96/69 L 92 08/20/16 07:33 08/20/16 08:49 08/20/16 08:49 08/20/16 07:33 08/20/16 08:49 Pulse Oximeter Continuous Start: 08/16/16 13: 58 Freq: RTQ4 Status: Complete Document 08/18/16 14:00 [facility] (Rec: 08/18/16 14:27 [facility] [email or web address]) Pulse Oximetry Assessment Oxygen Saturation (92-100) 94 Oxygen Delivery Method Room Air Fraction of Inspired Oxygen (FIO2) 21 Equipment Usage Equipment Discontinued Continuous SpO2 Machine # N 14 Intake & Output 08/19/16 08/20/16 08/21/16 06:59 06:59 06:59 Intake Total 2410 2258 Output Total 1575 2000 Balance 835 258 Weight 118.5 kg 120 kg General appearance: PRESENT: no acute distress Head exam: PRESENT: atraumatic, normocephalic Eye exam: PRESENT: conjunctiva pink. ABSENT: scleral icterus Ear exam: PRESENT: normal external ear exam Mouth exam: PRESENT: moist, tongue midline Neck exam: ABSENT: carotid bruit, JVD, lymphadenopathy, thyromegaly Respiratory exam: PRESENT: clear to auscultation jaycee. ABSENT: rales, rhonchi, wheezes Cardiovascular exam: PRESENT: irregular rhythm GI/Abdominal exam: PRESENT: normal bowel sounds, soft. ABSENT: distended, guarding, mass, organolmegaly, rebound, tenderness Extremities exam: PRESENT: pedal edema - Trace pedal edema.. ABSENT: calf tenderness, clubbing Neurological exam: PRESENT: alert, awake, oriented to person, oriented to place , oriented to time, oriented to situation, CN II-XII grossly intact. ABSENT: motor sensory deficit Psychiatric exam: PRESENT: appropriate affect Skin exam: PRESENT: dry, intact, warm. ABSENT: cyanosis, rash Results Laboratory Results: 08/17/16 03:06 08/18/16 04:58 08/16/16 08/16/16 08/16/16 19:39 19:39 22:40 Creatine Kinase 359 H 365 H CK-MB (CK-2) 2.30 Troponin I 0.029 08/16/16 08/17/16 08/17/16 22:40 03:06 03:06 Creatine Kinase 325 H CK-MB (CK-2) 2.12 1.96 Troponin I 0.030 0.027 Impressions: Chest X-Ray 08/17/16 00:00 IMPRESSION: Multifocal airspace disease, edema versus pneumonia. Overall pattern is similar compared to 08/16/2016. Qualifiers PATEINT BEING DISCHARGED WITH ANY OF THE FOLLOWING DIAGNOSIS?: Heart Failure HF Pt being discharged on ACEI for LVEF less than 40%?: No Reason(s) for not prescribing ACEI:: Procedure not indicated HF Pt being discharged on ARBS for LVEF less than 40%?: No Reason(s) for not prescribing ARBS:: Procedure not indicated HF Pt with Afib discharged with Warfarin?: No Reason(s) for not prescribing Warfarin:: Medical Contraindication HF Pt discharged on evidence-based Beta Susan?: No Reason(s) for not prescribing evidence-based Beta Susan:: Medical Contraindication Plan Discharge Plan: Patient is discharged to [facility] for rehabilitation with physical therapy. After that he most likely will need to go to the [facility] for his long-term living situation. Time Spent: Greater than 30 Minutes
[2016-08-20 16:55] VITALS: BP 148/70
== END 2016-08-20 19:05 | DRG 193 ==
LOC: ER 11:00 → EH 13:57 → UNDOADMIN 14:43 → EH 14:43 → 4N 17:04
DX: J18.1 Lobar pneumonia, unspecified organism (principal); I50.33 Acute on chronic diastolic (congestive) heart failure; Z66 Do not resuscitate; E03.9 Hypothyroidism, unspecified; I48.2 Chronic atrial fibrillation; I10 Essential (primary) hypertension; I25.10 Atherosclerotic heart disease of native coronary artery without angina pectoris; E87.6 Hypokalemia; R73.9 Hyperglycemia, unspecified; F03.90 Unspecified dementia, unspecified severity, without behavioral disturbance, psychotic disturbance, mood disturbance, and anxiety; Z79.01 Long term (current) use of anticoagulants; Z87.891 Personal history of nicotine dependence
CPT/HCPCS: 36415; 71010; 80048; 80053; 81001; 82550; 82553; 82803; 82962; 83036; 83605; 83880; 84484; 85025; 85610; 87040; 87086; 93005; 93010; 93306; 94640; 94762; 96365; 99285; G8978-GP; G8979-GP; J0692; J1650; J1956; J3490; J7030; J7512; J7620

== ENCOUNTER 2016-11-20 19:03 | Emergency (ER) | payer MEDICARE, OTHER ==
--- NOTE | 2016-11-20 19:36 | ER Document Report ---
ED General - General Stated Complaint: BLOOD IN URINE Mode of Arrival: Medic Information source: Patient, Relative Cannot obtain history due to: Dementia Notes: This is an 81-year-old male sent from [facility] for blood-tinged urine. Patient does have a history of dementia. Patient states that he feels fine and has no complaints. He does take Eliquis for A. fib and has been on this medication for many years. Patient denies pain, specifically denies chest pain , headache, abdominal pain. He denies any dysuria. He has had no nausea or vomiting. He states that he has eaten normally today without difficulty. He states that he had a normal bowel movement this morning and he denies seeing any blood in his bowel movements. TRAVEL OUTSIDE OF THE [place] IN LAST 30 DAYS: No - Related Data Allergies/Adverse Reactions: No Known Allergies Allergy (Verified 11/20/16 19:44) Past Medical History - General Information source: [facility] Records - Social History Smoking Status: Former Smoker Frequency of alcohol use: None Drug Abuse: None Lives with: Detention Family History: None - Past Medical History Cardiac Medical History: Reports: Hx Atrial Fibrillation, Hx Congestive Heart Failure, Hx Coronary Artery Disease - BY PASS/ HX A-FIB, Hx Hypercholesterolemia , Hx Hypertension Denies: Hx Heart Attack Pulmonary Medical History: Denies: Hx Asthma, Hx Bronchitis, Hx COPD, Hx Pneumonia Neurological Medical History: Denies: Hx Cerebrovascular Accident, Hx Seizures Endocrine Medical History: Reports: Hx Hypothyroidism Musculoskeltal Medical History: Reports Hx Arthritis - GENERALIZED Past Surgical History: Reports: Hx Cardiac Catheterization, Hx Cardiac Surgery, Hx Carotid Endarterectomy, Hx Coronary Artery Bypass Graft, Hx Orthopedic Surgery. Denies: Hx Pacemaker - Immunizations Hx Diphtheria, Pertussis, Tetanus Vaccination: Yes Hx Pneumococcal Vaccination: 07/19/15 Review of Systems - Review of Systems Notes: Review of systems Limited secondary to patient dementia Constitutional: denies: Chills, Fever EENT: No symptoms reported Cardiovascular: No symptoms reported. denies: Chest pain, Dyspnea Respiratory: No symptoms reported. denies: Cough, Short of breath Gastrointestinal: No symptoms reported. denies: Abdominal pain, Diarrhea, Nausea, Vomiting, Constipation, Blood streaked bowels, Black stools, Rectal bleeding Genitourinary: No symptoms reported. denies: Burning, Dysuria, Frequency Musculoskeletal: No symptoms reported Skin: No symptoms reported Hematologic/Lymphatic: No symptoms reported Neurological/Psychological: No symptoms reported Physical Exam - Vital signs Vitals: Temp Pulse Resp BP Pulse Ox 97.7 F 64 20 142/76 H 97 11/20/16 19:44 11/20/16 19:44 11/20/16 19:44 11/20/16 19:44 11/20/16 19:44 - Notes Notes: PHYSICAL EXAMINATION: GENERAL: Well-appearing, pleasant and conversant elderly male, well-nourished and in no acute distress. HEAD: Atraumatic, normocephalic. EYES: Pupils equal round and reactive to light, extraocular movements intact, sclera anicteric, conjunctiva are normal. ENT: nares patent, oropharynx clear without exudates. Moist mucous membranes. NECK: Normal range of motion, supple without lymphadenopathy LUNGS: Breath sounds clear to auscultation bilaterally and equal. No wheezes rales or rhonchi. HEART: Regular rate and rhythm without murmurs ABDOMEN: Soft, nontender, normoactive bowel sounds. No guarding, no rebound. No masses appreciated. EXTREMITIES: Normal range of motion, no edema NEUROLOGICAL: Cranial nerves grossly intact. No gross focal motor or sensory deficits appreciated. PSYCH: Normal mood, normal affect. SKIN: Superficial abrasion/skin tear to right anterior silva Course - Re-evaluation Re-evalutation: 11/20/16 23:46 Patient states that he still feels absolutely fine and he really wants to go home. We discussed his lab evaluation to include concerns for dehydration and acute kidney injury as well as hypokalemia. Record review shows that he should be on oral potassium supplement and I will verify this with [facility]. He has received 1 L of LR here in the ER as well as 40 mEq of oral potassium. His urine is noted to be blood tinged but no gross hemorrhage. He is not anemic. As he is very resistant to staying in the hospital and he is hemodynamically stable and asymptomatic, feeling he is appropriate for discharge back to [facility] at this time. He is instructed to follow up with his primary care physician on Wednesday for recheck of his kidney function and potassium. Also urology follow-up information was provided. His is very well versed in his care and she is comfortable with this plan. Strict return precautions were discussed. All of her questions were answered. - Vital Signs Vital signs: Temp Pulse Resp BP Pulse Ox 97.7 F 64 20 142/76 H 97 11/20/16 19:44 11/20/16 19:44 11/20/16 19:44 11/20/16 19:44 11/20/16 19:44 - Laboratory Result Diagrams: 11/20/16 20:35 11/20/16 20:35 Laboratory results interpreted by me: 11/20/16 11/20/16 11/20/16 19:20 20:35 20:35 WBC 15.7 H RDW 16.0 H Seg Neutrophils % 81.5 H Lymphocytes % 9.1 L Absolute Neutrophils 12.8 H APTT Sodium 133.7 L Potassium 3.0 L* Chloride 88 L BUN 43 H Creatinine 1.70 H Est GFR ( Amer) 47 L Est GFR (Non-Af Amer) 39 L Glucose 122 H AST 76 H ALT 121 H Alkaline Phosphatase 148 H Urine Blood LARGE H 11/20/16 20:35 WBC RDW Seg Neutrophils % Lymphocytes % Absolute Neutrophils APTT 36.8 H Sodium Potassium Chloride BUN Creatinine Est GFR ( Amer) Est GFR (Non-Af Amer) Glucose AST ALT Alkaline Phosphatase Urine Blood Discharge - Discharge Clinical Impression: Hypokalemia, Hematuria, Acute kidney injury Condition: Stable Disposition: HOME-SNF (ED ONLY) Additional Instructions: Your blood work shows that you are dehydrated. Also, your potassium level is low. Be sure to take the potassium supplement as prescribed. Follow up with your PCP on Wednesday as we discussed, to recheck your kidney function and your potassium. REturn to the ER for chest pain, fever, vomiting, increased bleeding in your urine, or any worsening symptoms or concerns. Prescriptions: Cephalexin Monohydrate [Keflex 500 mg Capsule] 500 mg PO QID #40 capsule Potassium Chloride 20 meq PO DAILY #30 tablet.er Referrals: RILEY OSMAN PA-C [Primary Care Provider] - 11/23/16 BARRERA CHIU MD [COMPENSATION AND BENEFITS ADMINISTRATOR] - Follow up in 3-5 days (hematuria)
[2016-11-20 20:12] LABS: APPEARANCE,URINE CLEAR; BILIRUBIN,URINE NEGATIVE (NEGATIVE); GLUCOSE, URINE NEGATIVE (NEGATIVE); KETONES,URINE NEGATIVE (NEGATIVE); LEUKOCYTE ESTERASE,URINE NEGATIVE (NEGATIVE); NITRITE,URINE NEGATIVE (NEGATIVE); PROTEIN,URINE NEGATIVE (NEGATIVE); URINE SPECIFIC GRAVITY 1.008; UROBILINOGEN,URINE NEGATIVE mg/dL (<2.0)
[2016-11-20 20:52] LABS: ABSOLUTE BASOPHILS # (AUTO) 0.1 10^3/uL (0.0-0.2); ABSOLUTE EOSINOPHILS # (AUTO) 0.2 10^3/uL (0.0-0.6); ABSOLUTE LYMPHOCYTES (AUTO) 1.4 10^3/uL (0.5-4.7); ABSOLUTE MONOCYTES (AUTO) 1.2 10^3/uL (0.1-1.4); ABSOLUTE NEUT (AUTO) 12.8 10^3/uL (1.7-8.2); BASOPHILS % (AUTO) 0.5 % (0-2); EOSINOPHILS % (AUTO) 1.5 % (0-6); HEMATOCRIT 42.3 % (37.9-51.0); HEMOGLOBIN 14.5 g/dL (13.5-17.0); HGB HCT DIFFERENCE 1.2; LYMPHOCYTES % (AUTO) 9.1 % (13-45); MEAN CORPUSCULAR HGB CONC 34.2 g/dL (32.0-36.0); MEAN CORPUSCULAR VOLUME 91 fl (80-97); MONOCYTES % (AUTO) 7.4 % (3-13); RED BLOOD COUNT 4.66 10^6/uL (4.35-5.55); SEGMENTED NEUTROPHILS % (AUTO) 81.5 % (42-78); WHITE BLOOD COUNT 15.7 10^3/uL (4.0-10.5)
[2016-11-20 21:10] LABS: PROTHROMBIN TIME 15.2 SEC (11.4-15.4)
[2016-11-20 21:11] LABS: PARTIAL THROMBOPLASTIN TIME 36.8 SEC (23.5-35.8)
[2016-11-20 21:13] LABS: ALANINE AMINOTRANSFERASE 121 U/L (21-72); ALBUMIN 4.3 g/dL (3.5-5.0); ALKALINE PHOSPHATASE 148 U/L (38-126); ANION GAP 19 (5-19); ASPARTATE AMINO TRANSFERASE 76 U/L (17-59); BILIRUBIN,DIRECT 0.4 mg/dL (0.0-0.4); BILIRUBIN,TOTAL 0.8 mg/dL (0.2-1.3); BLOOD UREA NITROGEN 43 mg/dL (7-20); CALCIUM 8.9 mg/dL (8.4-10.2); CARBON DIOXIDE 27 mmol/L (22-30); CHLORIDE 88 mmol/L (98-107); GLUCOSE 122 mg/dL (75-110); SODIUM 133.7 mmol/L (137-145); TOTAL PROTEIN 7.2 g/dL (6.3-8.2)
[2016-11-20] MEDS ORDERED: POTASSIUM CHLORIDE 10 MEQ TABLET.SA PO ONE (21:19)
[2016-11-20] MEDS ORDERED: RINGERS SOLUTION,LACTATED 1,000 ML IV ONE (21:19)
[2016-11-21 01:12] VITALS: BP 135/58
== END 2016-11-21 02:31 ==
LOC: ER 19:03
DX: E87.6 Hypokalemia (principal); R31.9 Hematuria, unspecified; N17.9 Acute kidney failure, unspecified; I48.91 Unspecified atrial fibrillation; Z79.02 Long term (current) use of antithrombotics/antiplatelets; F03.90 Unspecified dementia, unspecified severity, without behavioral disturbance, psychotic disturbance, mood disturbance, and anxiety; Z87.891 Personal history of nicotine dependence
CPT/HCPCS: 99284; 96365; 36415; 85025; 85610; 85730; 80053; 81001; J7120; A9270

== ENCOUNTER 2016-12-01 16:20 | Emergency (ER) | payer MEDICARE, OTHER ==
[2016-12-01 18:48] LABS: APPEARANCE,URINE CLEAR; BILIRUBIN,URINE NEGATIVE (NEGATIVE); GLUCOSE, URINE NEGATIVE (NEGATIVE); KETONES,URINE NEGATIVE (NEGATIVE); LEUKOCYTE ESTERASE,URINE NEGATIVE (NEGATIVE); NITRITE,URINE NEGATIVE (NEGATIVE); PROTEIN,URINE NEGATIVE (NEGATIVE); URINE SPECIFIC GRAVITY 1.006; UROBILINOGEN,URINE NEGATIVE mg/dL (<2.0)
[2016-12-01 18:51] LABS: ABSOLUTE EOSINOPHILS # (AUTO) 0.1 10^3/uL (0.0-0.6); ABSOLUTE LYMPHOCYTES (AUTO) 0.9 10^3/uL (0.5-4.7); ABSOLUTE MONOCYTES (AUTO) 0.8 10^3/uL (0.1-1.4); BASOPHILS % (AUTO) 0.4 % (0-2); EOSINOPHILS % (AUTO) 1.1 % (0-6); HEMOGLOBIN 13.5 g/dL (13.5-17.0); HGB HCT DIFFERENCE 0.5; LYMPHOCYTES % (AUTO) 7.9 % (13-45); MEAN CORPUSCULAR HEMOGLOBIN 31.1 pg (27.0-33.4); MEAN CORPUSCULAR HGB CONC 33.7 g/dL (32.0-36.0); MEAN CORPUSCULAR VOLUME 92 fl (80-97); MONOCYTES % (AUTO) 6.6 % (3-13); RED BLOOD COUNT 4.33 10^6/uL (4.35-5.55); RED CELL DISTRIBUTION WIDTH 16.3 % (11.5-14.0); WHITE BLOOD COUNT 11.9 10^3/uL (4.0-10.5)
[2016-12-01 19:24] LABS: ANION GAP 12 (5-19); BLOOD UREA NITROGEN 26 mg/dL (7-20); CALCIUM 9.1 mg/dL (8.4-10.2); CARBON DIOXIDE 31 mmol/L (22-30); CHLORIDE 90 mmol/L (98-107); CREATININE RESULT 1.48 mg/dL (0.52-1.25); GLUCOSE 125 mg/dL (75-110); MAGNESIUM 2.2 mg/dL (1.6-2.3); SODIUM 132.5 mmol/L (137-145)
[2016-12-01 19:35] LABS: POTASSIUM 2.9 mmol/L (3.6-5.0)
[2016-12-01] MEDS ORDERED: POTASSIUM CHLORIDE 20 MEQ/15 ML UDCUP PO ONE (19:36)
--- NOTE | 2016-12-01 19:56 | ER Document Report ---
ED GI/ - General Chief Complaint: Urinary Problem Stated Complaint: URINARY ISSUE Information source: Patient, Relative Cannot obtain history due to: Dementia Notes: Limited by dementia TRAVEL OUTSIDE OF THE [place] IN LAST 30 DAYS: No - HPI Notes: 12/01/16 19:53 This is an 81-year-old male with history of dementia who presents for decreased urine output. It is reported that patient has not urinated since last night but this is unclear. Recently was seen here placed on Flomax potassium and Keflex after being evaluated for hematuria about a week ago. There has been no vomiting. No other complaints. No obvious pain noted he is on Lasix and appears to be getting that as well as both Klor-Con and potassium chloride. It appears he is only getting one of these as it is a duplicate order. - Related Data Allergies/Adverse Reactions: No Known Allergies Allergy (Verified 11/20/16 19:44) Past Medical History - Social History Smoking Status: Former Smoker Chew tobacco use (# tins/day): No Frequency of alcohol use: None Drug Abuse: None Family History: None - Past Medical History Cardiac Medical History: Reports: Hx Atrial Fibrillation, Hx Congestive Heart Failure, Hx Coronary Artery Disease - BY PASS/ HX A-FIB, Hx Hypercholesterolemia , Hx Hypertension Denies: Hx Heart Attack Pulmonary Medical History: Denies: Hx Asthma, Hx Bronchitis, Hx COPD, Hx Pneumonia Neurological Medical History: Denies: Hx Cerebrovascular Accident, Hx Seizures Endocrine Medical History: Reports: Hx Hypothyroidism Renal/ Medical History: Denies: Hx Peritoneal Dialysis Musculoskeltal Medical History: Reports Hx Arthritis - GENERALIZED Past Surgical History: Reports: Hx Cardiac Catheterization, Hx Cardiac Surgery, Hx Carotid Endarterectomy, Hx Coronary Artery Bypass Graft, Hx Orthopedic Surgery. Denies: Hx Pacemaker - Immunizations Hx Diphtheria, Pertussis, Tetanus Vaccination: Yes Hx Pneumococcal Vaccination: 07/19/15 Review of Systems - Review of Systems -: Yes ROS unobtainable due to patient's medical condition - Dementia but denies Physical Exam - Vital signs Vitals: Temp Pulse Resp BP Pulse Ox 98.1 F 69 17 127/52 H 96 12/01/16 16:57 12/01/16 16:57 12/01/16 16:57 12/01/16 16:57 12/01/16 16:57 - Notes Notes: GENERAL: VS as per nursing doc. Well-appearing, well-nourished and in no acute distress. HEAD: Atraumatic, normocephalic. EYES: Pupils equal round and reactive to light, extraocular movements intact, sclera anicteric, no conjunctival injection or discharge. ENT: Nares patent, oropharynx clear without exudates, moist mucous membranes. NECK: Normal range of motion, supple without lymphadenopathy. LUNGS: Breath sounds clear to auscultation bilaterally and equal. No wheezes rales or rhonchi. HEART: Regular rate and rhythm without murmurs. ABDOMEN: Soft, non-tender, obese, no obvious distention of the bladder and no tenderness in that region. BACK: No CVA tenderness. EXTREMITIES: Normal range of motion, no calf tenderness, 2+ edema. NEUROLOGICAL: Grossly intact, oriented 2. PSYCH: Normal mood, normal affect. SKIN: Warm, dry. Course - Re-evaluation Re-evalutation: 12/01/16 20:01 We see no evidence of urinary retention here as he urinated 100 mL on his own and only had 150 mL residual. His kidney function did not show any problem. Did note that the potassium did not get increased as it was probably listed as a duplicate order. Discussed this and findings with the family and they understand warning signs to watch for - Vital Signs Vital signs: Temp Pulse Resp BP Pulse Ox 98.1 F 69 17 127/52 H 96 12/01/16 16:57 12/01/16 16:57 12/01/16 16:57 12/01/16 16:57 12/01/16 16:57 - Laboratory Result Diagrams: 12/01/16 18:30 12/01/16 18:30 Laboratory results interpreted by me: 12/01/16 12/01/16 18:30 18:30 WBC 11.9 H RBC 4.33 L RDW 16.3 H Seg Neutrophils % 84.0 H Lymphocytes % 7.9 L Absolute Neutrophils 10.0 H Sodium 132.5 L Potassium 2.9 L* Chloride 90 L Carbon Dioxide 31 H BUN 26 H Creatinine 1.48 H Est GFR ( Amer) 55 L Est GFR (Non-Af Amer) 46 L Glucose 125 H Discharge - Discharge Clinical Impression: oliguria by history, Hypokalemia Condition: Good [facility] Instructions: Hypokalemia ([facility]) Additional Instructions: Please ensure you double the dose of the potassium. It was automatically canceled after the last visit as a duplicate order. This should be 40 mEq daily with a recheck in the next week. Encourage fluids. Return for any problem or concern. Referrals: RILEY OSMAN PA-C [Primary Care Provider] - Follow up in 3-5 days
[2016-12-01 22:06] VITALS: BP 128/64
== END 2016-12-01 21:45 ==
LOC: ER 16:20
DX: R34 Anuria and oliguria (principal); E87.6 Hypokalemia; R39.198 Other difficulties with micturition; Z79.899 Other long term (current) drug therapy; Z87.891 Personal history of nicotine dependence
CPT/HCPCS: 99285; 51702; 36415; 87086; 83735; 85025; 80048; 81001; A9270

== ENCOUNTER 2016-12-07 12:17 | Emergency (ER) | payer MEDICARE, OTHER ==
--- NOTE | 2016-12-07 12:28 | ER Document Report ---
ED GI/ - General Mode of Arrival: Medic Information source: Patient, Relative, [facility] Records TRAVEL OUTSIDE OF THE [place] IN LAST 30 DAYS: No - HPI Patient complains to provider of: Other - Blood around Catheter Recently seen / treated by doctor: Yes - [facility] 12/03/2016 - General Chief Complaint: Blood in Catheter Stated Complaint: UTI PROBLEMS Time Seen by Provider: 12/07/16 12:22 Notes: Patient is an 81-year-old male with history of dementia, who presents to the emergency department via EMS today due to blood surrounding his urinary catheter. Patient has been seen here multiple times over the past month for issues. Patient was first seen November 20 with hematuria and hypokalemia. Patient was subsequently seen here December 03 secondary to allegedly experiencing urinary retention. Patient was sent home with catheter removed, but a few days later had the catheter re-inserted. Patient presents to the emergency department with bag removed and tube clamped with a large utility paperclip covered with bandage. PCP: Dr. Maycol Miguel (Midnight), Urologist: Dr. Philippe ( [facility]) (BETHANY ALVAREZ) - Related Data Allergies/Adverse Reactions: No Known Allergies Allergy (Verified 12/07/16 12:28) Past Medical History - General Information source: Patient, Relative - , [facility] Records - Social History Smoking Status: Former Smoker Lives with: [facility] Family History: None - Past Medical History Cardiac Medical History: Reports: Hx Atrial Fibrillation, Hx Congestive Heart Failure, Hx Coronary Artery Disease - BYPASS/ HX A-FIB, Hx Hypercholesterolemia , Hx Hypertension Pulmonary Medical History: Reports: None, Hx Intubation, Hx Respiratory Failure , Hx Sleep Apnea, Hx Tuberculosis, Other Endocrine Medical History: Reports: Hx Hypothyroidism Musculoskeltal Medical History: Reports Hx Arthritis - GENERALIZED Past Surgical History: Reports: Hx Cardiac Catheterization, Hx Cardiac Surgery, Hx Carotid Endarterectomy, Hx Coronary Artery Bypass Graft, Hx Orthopedic Surgery - Immunizations Hx Diphtheria, Pertussis, Tetanus Vaccination: Yes Hx Pneumococcal Vaccination: 07/19/15 Review of Systems - Review of Systems Constitutional: No symptoms reported EENT: No symptoms reported Cardiovascular: No symptoms reported Respiratory: No symptoms reported Gastrointestinal: No symptoms reported Genitourinary: No symptoms reported Male Genitourinary: See HPI, Other - Blood around catheter Musculoskeletal: No symptoms reported Skin: No symptoms reported Hematologic/Lymphatic: No symptoms reported Neurological/Psychological: No symptoms reported -: Yes All other systems reviewed and negative Physical Exam - General General appearance: Alert - HEENT Head: Normocephalic, Atraumatic Eyes: Normal Pupils: PERRL - Respiratory Respiratory status: No respiratory distress Chest status: Nontender Breath sounds: Normal - Cardiovascular Rhythm: Regular - Abdominal Inspection: Normal Tenderness: Nontender - Genitourinary Inspection: Other - Back Back: Normal, Nontender - Extremities General upper extremity: Normal inspection, Nontender. No: Edema General lower extremity: Normal inspection, Nontender. No: Edema - Neurological Neuro grossly intact: Yes Cognition: Normal Orientation: AAOx4 Myton Coma Scale Eye Opening: Spontaneous Myton Coma Scale Verbal: Oriented Myton Coma Scale Motor: Obeys Commands Myton Coma Scale Total: 15 Speech: Normal - Psychological Associated symptoms: Normal affect, Normal mood - Skin Skin Temperature: Warm Skin Moisture: Dry Skin Color: Other - See exam - Vital signs Vitals: Temp Pulse Resp BP Pulse Ox 97.5 F 57 L 20 116/64 96 12/07/16 12:26 12/07/16 12:26 12/07/16 12:26 12/07/16 12:26 12/07/16 12:26 - Genitourinary Notes: Catheter inserted, bag removed, tube clamped with large paperclip. Urine comes out clear when paperclip removed, Clotted blood along outside of catheter. Right inferior aspect of urethral opening source of blood secondary to tube cutting into the tissue. (BETHANY ALVAREZ) Discharge - Discharge Clinical Impression: Erosion of urethral meatus Condition: Stable Disposition: HOME, SELF-CARE Additional Instructions: The bleeding is due to the catheter being pulled down tightly against the opening to the penis. It should be secured to the right thigh allowing plenty of play in the catheter. Follow-up with Dr. Ellsworth at [facility] urology tomorrow morning at 8:30 AM. Scribe Attestation: 12/07/16 14:29 I personally performed the services described in the documentation, reviewed and edited the documentation which was dictated to the scribe in my presence, and it accurately records my words and actions. (AYLEEN GRAY) Scribe Documentation - Scribe Written by Denise:: Denise Fowler, 12/07/2016 [id number] acting as scribe for :: Jose
[2016-12-07 15:33] VITALS: BP 112/55
== END 2016-12-07 15:52 | disposition home or self-care (01) ==
LOC: ER 12:17
DX: N36.8 Other specified disorders of urethra (principal); I25.10 Atherosclerotic heart disease of native coronary artery without angina pectoris; I10 Essential (primary) hypertension; Z95.1 Presence of aortocoronary bypass graft; Z87.891 Personal history of nicotine dependence
CPT/HCPCS: 99284

== ENCOUNTER 2016-12-11 08:53 | Inpatient (IN) | payer MEDICARE, OTHER ==
--- NOTE | 2016-12-11 09:41 | ER Document Report ---
ED General - General Mode of Arrival: Medic Information source: Patient, Emergency Med Personnel, Outside Facility Records TRAVEL OUTSIDE OF THE [place] IN LAST 30 DAYS: No - HPI Patient complains to provider of: "convulsions" Onset: Yesterday Associated symptoms: Other - See above <ABHISHEK BACA - Last Filed: 12/11/16 09:50> <ISAACAYLEEN - Last Filed: 12/11/16 15:12> - General Chief Complaint: Seizure Stated Complaint: convulsions Time Seen by Provider: 12/11/16 09:33 Notes: Patient is an 81 year old male, with a past medical history including dementia, who presents to the emergency department via EMS from [facility] for "convulsions" last night. Per [facility] records, patient had unwitnessed "convulsions" last night that cannot be confirmed, after shift change this morning the new nurse decided that he needed to be transported to the ED. Patient is not sure why he was brought here and states he feels fine. Patient only complains of being very thirsty. Patient was seen at this facility on 12/07 for bleeding from his catheter site, he followed up with Dr. Ellsworth at [facility] and had the catheter removed at some point although patient was unable to tell if catheter was in or not. (ABHISHEK BACA) - Related Data Allergies/Adverse Reactions: No Known Allergies Allergy (Verified 12/07/16 12:28) Past Medical History - General Information source: Patient - Social History Smoking Status: Unknown if Ever Smoked Family History: None, Reviewed & Not Pertinent - Past Medical History Cardiac Medical History: Reports: Hx Atrial Fibrillation, Hx Congestive Heart Failure, Hx Coronary Artery Disease - BYPASS/ HX A-FIB, Hx Hypercholesterolemia , Hx Hypertension Pulmonary Medical History: Reports: Hx Intubation, Hx Respiratory Failure, Hx Sleep Apnea, Hx Tuberculosis Endocrine Medical History: Reports: Hx Hypothyroidism Musculoskeltal Medical History: Reports Hx Arthritis - GENERALIZED Psychiatric Medical History: Reports: Hx Dementia Past Surgical History: Reports: Hx Cardiac Catheterization, Hx Cardiac Surgery, Hx Carotid Endarterectomy, Hx Coronary Artery Bypass Graft, Hx Orthopedic Surgery - Immunizations Hx Diphtheria, Pertussis, Tetanus Vaccination: Yes Hx Pneumococcal Vaccination: 07/19/15 <ABHISHEK BACA - Last Filed: 12/11/16 09:50> Review of Systems - Review of Systems Constitutional: See HPI, Other - thirsty EENT: No symptoms reported Cardiovascular: No symptoms reported Respiratory: No symptoms reported Gastrointestinal: No symptoms reported Genitourinary: No symptoms reported Male Genitourinary: No symptoms reported Musculoskeletal: No symptoms reported Skin: No symptoms reported Hematologic/Lymphatic: No symptoms reported Neurological/Psychological: No symptoms reported -: Yes All other systems reviewed and negative <ABHISHEK BACA - Last Filed: 12/11/16 09:50> Physical Exam - Vital signs Interpretation: Normal - General General appearance: Appears well, Alert, Other - somewhat demented at baseline - HEENT Head: Normocephalic, Atraumatic Mucous membranes: Dry - Respiratory Respiratory status: No respiratory distress Chest status: Nontender Breath sounds: Normal Chest palpation: Normal - Cardiovascular Rhythm: Regular Heart sounds: Normal auscultation Murmur: No - Abdominal Inspection: Obese - mildly Distension: No distension Bowel sounds: Normal Tenderness: Nontender Organomegaly: No organomegaly - Genitourinary Inspection: Normal - no lim catheter in place - Extremities General upper extremity: Other - wearing bilateral wrist splints. chronic tremor in hands. General lower extremity: Normal inspection - DEEPTI calzada - Neurological Neuro grossly intact: Yes Cognition: Other - somehwat demented Orientation: AAOx4 Howe Coma Scale Eye Opening: Spontaneous Cat Coma Scale Verbal: Oriented Cat Coma Scale Motor: Obeys Commands Howe Coma Scale Total: 15 Speech: Normal - Psychological Associated symptoms: Normal affect, Normal mood - Skin Skin Temperature: Warm Skin Moisture: Dry Skin Color: Normal <ABHISHEK BACA - Last Filed: 12/11/16 09:50> Course <ABHISHEK BACA - Last Filed: 12/11/16 09:50> - Laboratory Result Diagrams: 12/11/16 10:39 12/11/16 10:39 - Consults Jennifer Garcia Time consulted: 15:10 Consulted provider: will come to ER <AYLEEN GRAY - Last Filed: 12/11/16 15:12> - Re-evaluation Re-evalutation: 12/11/16 11:32 The patient was complaining of not feeling well, he is placed on a monitor and found to be in A. fib with RVR with a rate of 148. His blood pressure is 80 systolic. When he was first seen his blood pressure was 130 systolic with a heart rate in the 90s. Chemistries show that his BUN went from 26-56 and creatinine of 1.48-2.26 in the last 10 days. He is obviously quite dehydrated, will be given 1 L bolus of normal saline. 12/11/16 13:44 1 L of normal saline IV, the patient's pressure came up to 113 systolic and the heart rate decreased to 99. Remains in atrial fibrillation. (AYLEEN GRAY) - Vital Signs Vital signs: Temp Pulse Resp BP Pulse Ox 100.5 F H 92 20 136/64 H 97 12/11/16 14:58 12/11/16 08:55 12/11/16 13:31 12/11/16 14:59 12/11/16 13:31 - Laboratory Laboratory results interpreted by me: 12/11/16 12/11/16 12/11/16 10:39 10:39 14:10 WBC 14.3 H RBC 4.07 L Hgb 12.6 L Hct 36.6 L RDW 16.2 H Seg Neuts % (Manual) 87 H Lymphocytes % (Manual) 4 L Abs Neuts (Manual) 13.0 H Sodium 132.2 L Potassium 2.9 L* Chloride 92 L BUN 56 H Creatinine 2.26 H Est GFR ( Amer) 34 L Est GFR (Non-Af Amer) 28 L Glucose 143 H Calcium 8.3 L Total Bilirubin 1.5 H Direct Bilirubin 0.9 H Total Protein 5.9 L Albumin 3.1 L Urine Protein 100 H Urine Blood SMALL H Ur Leukocyte Esterase LARGE H Critical Care Note - Critical Care Note Total time excluding time spent on procedures (mins): 40 <AYLEEN GRAY - Last Filed: 12/11/16 15:12> Discharge <ABHISHEK BACA - Last Filed: 12/11/16 09:50> - Discharge Admitting Provider: Hospitalist Unit Admitted: [facility] <AYLEEN GRAY - Last Filed: 12/11/16 15:12> - Discharge Clinical Impression: Fever and chills, Atrial fibrillation with RVR Urinary tract infection Qualifiers: Urinary tract infection type: site unspecified Hematuria presence: without hematuria Qualified Code(s): N39.0 - Urinary tract infection, site not specified Sepsis Qualifiers: Sepsis type: sepsis due to unspecified organism Qualified Code(s): A41.9 - Sepsis, unspecified organism Leukocytosis Qualifiers: Leukocytosis type: bandemia Qualified Code(s): D72.825 - Bandemia Hypotension Qualifiers: Hypotension type: unspecified hypotension type Qualified Code(s): I95.9 - Hypotension, unspecified Condition: Stable Scribe Attestation: 12/11/16 15:11 I personally performed the services described in the documentation, reviewed and edited the documentation which was dictated to the scribe in my presence, and it accurately records my words and actions. (AYLEEN GRAY) Scribe Documentation - Scribe Written by Scribe:: gabriel Harrison, 12/11/16, [id number] acting as scribe for :: Isaac <ABHISHEK BACA - Last Filed: 12/11/16 09:50>
[2016-12-11 10:52] LABS: HEMATOCRIT 36.6 % (37.9-51.0); HEMOGLOBIN 12.6 g/dL (13.5-17.0); HGB HCT DIFFERENCE 1.2; MEAN CORPUSCULAR HEMOGLOBIN 30.9 pg (27.0-33.4); MEAN CORPUSCULAR HGB CONC 34.3 g/dL (32.0-36.0); MEAN CORPUSCULAR VOLUME 90 fl (80-97); RED BLOOD COUNT 4.07 10^6/uL (4.35-5.55); RED CELL DISTRIBUTION WIDTH 16.2 % (11.5-14.0); WHITE BLOOD COUNT 14.3 10^3/uL (4.0-10.5)
[2016-12-11 11:16] LABS: ALANINE AMINOTRANSFERASE 50 U/L (21-72); ALBUMIN 3.1 g/dL (3.5-5.0); ALKALINE PHOSPHATASE 84 U/L (38-126); ANION GAP 13 (5-19); ASPARTATE AMINO TRANSFERASE 37 U/L (17-59); BILIRUBIN,DIRECT 0.9 mg/dL (0.0-0.4); BILIRUBIN,TOTAL 1.5 mg/dL (0.2-1.3); BLOOD UREA NITROGEN 56 mg/dL (7-20); CALCIUM 8.3 mg/dL (8.4-10.2); CARBON DIOXIDE 27 mmol/L (22-30); CHLORIDE 92 mmol/L (98-107); CREATININE RESULT 2.26 mg/dL (0.52-1.25); GLUCOSE 143 mg/dL (75-110); SODIUM 132.2 mmol/L (137-145); TOTAL PROTEIN 5.9 g/dL (6.3-8.2)
[2016-12-11] MEDS ORDERED: NORMAL SALINE 1000 ML 1,000 ML IV ONE ×2 (11:28→13:49)
[2016-12-11 11:29] LABS: BAND NEUTROPHILS % (MANUAL) 4 % (3-5); BASOPHILS % (MANUAL) 0 % (0-2); EOSINOPHILS % (MANUAL) 0 % (0-6); LYMPHOCYTES % (MANUAL) 4 % (13-45); TOTAL CELLS COUNTED 100
[2016-12-11 11:30] LABS: ANISOCYTOSIS 1+; TOXIC GRANULATION SLIGHT; TOXIC VACUOLATION PRESENT
[2016-12-11 11:34] LABS: POTASSIUM 2.9 mmol/L (3.6-5.0)
[2016-12-11] MEDS ORDERED: POTASSIUM CHLORIDE 20 MEQ/15 ML UDCUP PO ONE (12:27)
[2016-12-11 14:44] LABS: APPEARANCE,URINE CLOUDY; BILIRUBIN,URINE NEGATIVE (NEGATIVE); GLUCOSE, URINE NEGATIVE (NEGATIVE); KETONES,URINE NEGATIVE (NEGATIVE); LEUKOCYTE ESTERASE,URINE LARGE (NEGATIVE); NITRITE,URINE NEGATIVE (NEGATIVE); PROTEIN,URINE 100 mg/dL (NEGATIVE); URINE SPECIFIC GRAVITY 1.011; UROBILINOGEN,URINE NEGATIVE mg/dL (<2.0)
[2016-12-11] MEDS ORDERED: ACETAMINOPHEN 325 MG TABLET PO ONE (15:00)
[2016-12-11] MEDS ORDERED: CEFTRIAXONE 1 GM/D5W RTU 50 ML IV ONE (15:00)
[2016-12-11] MEDS ORDERED: MAGNESIUM HYDROXIDE SUSP 30 ML UDCUP PO PRN (15:32)
[2016-12-11] MEDS ORDERED: ONDANSETRON HCL INJ/PF 4 MG/2 ML SDV IV PRN (15:32)
[2016-12-11] MEDS ORDERED: ACETAMINOPHEN 325 MG TABLET PO PRN (15:32)
[2016-12-11] MEDS ORDERED: POTASSI CL 20 MEQ/50 ML RIDER 50 ML IV ONE (15:38)
--- NOTE | 2016-12-11 16:15 | PDOC H&P ---
History of Present Illness Patient complains of: " Convulsions" noted by nursing staff History of Present Illness: Patient is an 81 year old male, with a past medical history including dementia, who presents to the emergency department via EMS from [facility] for "convulsions" last night. Per [facility] records, patient had unwitnessed "convulsions" last night that cannot be confirmed, after shift change this morning the new nurse decided that he needed to be transported to the ED. Patient is not sure why he was brought here and states he feels fine. Patient only complains of being very thirsty. Patient was seen at this facility on 12/07 for bleeding from his catheter site, he followed up with Dr. Ellsworth at [facility] and had the catheter removed at some point although patient was unable to tell if catheter was in or not. He is noted to having mild rigors on arrival. He was found to have a UTI on urinalysis, leucocytosis, tachycardia, fever and hypotension. He is unable to provide any history of his illness due to dementia. Past Medical History Cardiac Medical History: Reports: Atrial Fibrillation, Congestive Heart Failure , Coronary Artery Disease - BYPASS/ HX A-FIB, Hyperlipidema, Hypertension Denies: Myocardial Infarction Pulmonary Medical History: Reports: Intubation, Respiratory Failure, Sleep Apnea , Tuberculosis Denies: Asthma, Bronchitis, Chronic Obstructive Pulmonary Disease (COPD), Pneumonia EENT Medical History: Reports: None Neurological Medical History: Denies: Seizures Endocrine Medical History: Reports: Hypothyroidism Musculoskeltal Medical History: Reports: Arthritis - GENERALIZED Psychiatric Medical History: Reports: Dementia Hematology: Reports: Anemia Past Surgical History Past Surgical History: Reports: Cardiac Catheterization, Carotid Endarterectomy , Coronary Artery Bypass Graft, Orthopedic Surgery Denies: Pacemaker Social History Information Source: Transfer Record, Emergency Med Personnel, [facility] Records Lives with: Senior [facility] Smoking Status: Former Smoker Frequency of Alcohol Use: None Hx Recreational Drug Use: No Drugs: None Hx Prescription Drug Abuse: No - Advance Directive Resuscitation Status: Full Code Family History Family History: None, CAD, Hypertension Parental Family History Reviewed: Yes Children Family History Reviewed: Yes Sibling(s) Family History Reviewed.: Yes Medication/Allergy Home Medications: Amiodarone HCl 200 mg PO DAILY 05/12/16 Atorvastatin Calcium 80 mg PO QHS 05/12/16 Ciclopirox Olamine [Ciclopirox] 1 applic TOP BID PRN 05/12/16 Furosemide [Lasix 80 mg Tablet] 1 tab PO DAILY 05/12/16 Levothyroxine Sodium [Synthroid] 175 mcg PO DAILY 05/12/16 Metoprolol Tartrate [Lopressor 50 mg Tablet] 50 mg PO DAILY 05/12/16 Potassium Chloride [Klor-Con 10] 20 meq PO DAILY 05/12/16 Tamsulosin HCl [Flomax 0.4 mg Cap.sr] 0.4 mg PO QHS 05/12/16 Triamterene/Hydrochlorothiazid [Maxzide 75 mg-50 mg Tablet] 0.5 tab PO DAILY Apixaban [Eliquis 5 mg Tablet] 1 tab PO BID 08/16/16 Docusate Sodium 100 mg PO BID 08/16/16 Folic Acid/Vit Bcomp,C [B-Complex with Vit C Tablet] 400 mcg PO DAILY 08/16/16 Mineral Oil/Petrolatum,White [Eucerin Creme] 1 applic TOP BID 08/16/16 Rivastigmine [Exelon 4.6 mg/24 Hr Transdermal Patch] 1 each TD DAILY 08/16/16 Triamcinolone Acetonide [Aristocort 0.5% Cream 15 gm] 1 applic TOP BID 08/16/16 Acetaminophen [Tylenol 325 mg Tablet] 650 mg PO Q4HP PRN tablet 08/18/16 Aspirin [Aspirin 81 mg Chewable Tablet] 81 mg PO DAILY tab.chew 08/18/16 Ipratropium/Albuterol Sulfate [Duoneb 3 ml Ampul] 3 ml [facility] RTQ6 vial.neb Levofloxacin [Levaquin 750 mg Tablet] 750 mg PO DAILY #3 tablet 08/18/16 Cephalexin Monohydrate [Keflex 500 mg Capsule] 500 mg PO QID #40 capsule Potassium Chloride 20 meq PO DAILY #30 tablet.er 11/20/16 Allergies/Adverse Reactions: No Known Allergies Allergy (Verified 12/07/16 12:28) Review of Systems ROS unobtainable: Due to mental status Constitutional: PRESENT: chills Physical Exam Vital Signs: Temp Pulse Resp BP Pulse Ox 100.5 F H 92 22 H 136/64 H 98 12/11/16 14:58 12/11/16 08:55 12/11/16 15:00 12/11/16 14:59 12/11/16 15:00 General appearance: PRESENT: no acute distress, obese, well-developed, well- nourished Head exam: PRESENT: atraumatic, normocephalic Eye exam: PRESENT: conjunctiva pale Ear exam: PRESENT: normal external ear exam Mouth exam: PRESENT: dry mucosa, neck supple, tongue midline Teeth exam: PRESENT: edentulous Neck exam: ABSENT: carotid bruit, JVD, lymphadenopathy, thyromegaly Respiratory exam: PRESENT: decreased breath sounds, symmetrical, unlabored Cardiovascular exam: PRESENT: RRR. ABSENT: diastolic murmur, rubs, systolic murmur Pulses: PRESENT: normal dorsalis pedis pul Vascular exam: PRESENT: normal capillary refill GI/Abdominal exam: PRESENT: normal bowel sounds, soft Rectal exam: PRESENT: deferred Extremities exam: PRESENT: full ROM. ABSENT: calf tenderness, clubbing, pedal edema Neurological exam: PRESENT: alert, altered, awake, CN II-XII grossly intact. ABSENT: motor sensory deficit Psychiatric exam: PRESENT: appropriate affect, normal mood. ABSENT: homicidal ideation, suicidal ideation Skin exam: PRESENT: dry, intact, warm. ABSENT: cyanosis, rash Results Laboratory Results: 12/11/16 10:39 12/11/16 10:39 12/11/16 12/11/16 12/11/16 10:39 10:39 14:10 WBC 14.3 H RBC 4.07 L Hgb 12.6 L Hct 36.6 L MCV 90 MCH 30.9 MCHC 34.3 RDW 16.2 H Plt Count 251 Seg Neutrophils % Not Reportable Lymphocytes % Not Reportable Monocytes % Not Reportable Eosinophils % Not Reportable Basophils % Not Reportable Absolute Neutrophils Not Reportable Absolute Lymphocytes Not Reportable Absolute Monocytes Not Reportable Absolute Eosinophils Not Reportable Absolute Basophils Not Reportable Sodium 132.2 L Potassium 2.9 L* Chloride 92 L Carbon Dioxide 27 Anion Gap 13 BUN 56 H Creatinine 2.26 H Est GFR ( Amer) 34 L Est GFR (Non-Af Amer) 28 L Glucose 143 H Calcium 8.3 L Total Bilirubin 1.5 H AST 37 ALT 50 Alkaline Phosphatase 84 Total Protein 5.9 L Albumin 3.1 L Urine Color DARK YELLOW Urine Appearance CLOUDY Urine pH 8.0 Ur Specific O'Brien 1.011 Urine Protein 100 H Urine Glucose (UA) NEGATIVE Urine Ketones NEGATIVE Urine Blood SMALL H Urine Nitrite NEGATIVE Ur Leukocyte Esterase LARGE H Urine WBC (Auto) >182 Urine RBC (Auto) 7 Assessment & Plan - Diagnosis (1) Sepsis Qualifiers: Sepsis type: sepsis due to unspecified organism Qualified Code(s): A41.9 - Sepsis, unspecified organism Is this a current diagnosis for this admission?: YesPlan: Patient with fever, tachycardia, hypotension and leucocytosis. UA shows positive for UTI. Patient has history of BPH with urinary retention. He had worsening of symptoms requiring Armioj catheter placement by long-term staff. catheter apparently could not be completely inserted. He noted to have bleeding around his meatus was seen by a local urologist, Dr. Ellsworth, who removed the catheter and start patient on oral antibiotic therapy. He is now incontinent of urine. He was straight cathed for urinary sample. He did not have any significant urinary retention at that time. He will be aggressively fluid resuscitated and started on IV broad-spectrum antibiotics after blood cultures and urine cultures are sent. (2) Fever and chills Is this a current diagnosis for this admission?: YesPlan: Antibiotic therapy, IV fluids and Tylenol for fever (3) Urinary tract infection Qualifiers: Urinary tract infection type: site unspecified Hematuria presence: without hematuria Qualified Code(s): N39.0 - Urinary tract infection, site not specified Is this a current diagnosis for this admission?: YesPlan: IV ceftriaxone, urine cultures and blood cultures pending (4) Acute kidney injury Is this a current diagnosis for this admission?: YesPlan: Patient with history of CKD3 had doubling of BUN/CR from one week ago secondary to hypovolemia from uti, possible bacteremia. He will be fluid resuscitated. (5) Leukocytosis Qualifiers: Leukocytosis type: bandemia Qualified Code(s): D72.825 - Bandemia Is this a current diagnosis for this admission?: Yes (6) Atrial fibrillation with controlled ventricular response Is this a current diagnosis for this admission?: YesPlan: Continue home medications and elequis (7) Hypokalemia Is this a current diagnosis for this admission?: YesPlan: Potassium is repleted (8) Hypothyroidism (acquired) Is this a current diagnosis for this admission?: YesPlan: Continue synthroid - Time Time Spent: 50 to 70 Minutes Critical Time spent with patient: 25-34 minutes Medications reviewed and adjusted accordingly: Yes Anticipated discharge: SNF
[2016-12-11] MEDS: NORMAL SALINE 1000 ML 1,000 ML IV PRN (16:19)
--- NOTE | 2016-12-11 16:35 | RADIOLOGY REPORT (SQ) ---
EXAM DESCRIPTION: CHEST SINGLE VIEW COMPLETED DATE/TIME: 12/11/2016 4:25 pm REASON FOR STUDY: fever, chills COMPARISON: 08/17/2016 EXAM PARAMETERS: NUMBER OF VIEWS: One view. TECHNIQUE: Single frontal radiographic view of the chest acquired. RADIATION DOSE: NA LIMITATIONS: None. FINDINGS: LUNGS AND PLEURA: Chronic interstitial changes are present. There is improvement in the a ppearance of the chest since the earlier study. There continues to be slightly increased opacity in the right upper lobe adjacent to the minor fissure. MEDIASTINUM AND HILAR STRUCTURES: No masses. Contour normal. HEART AND VASCULAR STRUCTURES: Heart normal in size. Normal vasculature. BONES: No acute findings. HARDWARE: Sternotomy wires. OTHER: No other significant finding. IMPRESSION: Chronic lung changes. Minimal right upper lobe pneumonia cannot be ruled out. TECHNICAL DOCUMENTATION: JOB ID: [id number]
[2016-12-11] MEDS: APIXABAN 5 MG TABLET PO SCH (20:15)
--- NOTE | 2016-12-11 20:33 | EKG REPORT ---
SEVERITY:- ABNORMAL ECG - ATRIAL FIBRILLATION, V-RATE 79-105 LVH WITH SECONDARY REPOLARIZATION ABNORMALITY LATERAL INFARCT, AGE INDETERMINATE : Confirmed by: Seth Tee MD 11-Dec-2016 20:32:14
[2016-12-11] MEDS: TAMSULOSIN HCL 0.4 MG CAP.SR.24H PO SCH (22:24)
[2016-12-12 05:39] LABS: HEMATOCRIT 30.7 % (37.9-51.0); HGB HCT DIFFERENCE 0.2; MEAN CORPUSCULAR HEMOGLOBIN 30.9 pg (27.0-33.4); MEAN CORPUSCULAR HGB CONC 33.6 g/dL (32.0-36.0); MEAN CORPUSCULAR VOLUME 92 fl (80-97); RED BLOOD COUNT 3.34 10^6/uL (4.35-5.55); RED CELL DISTRIBUTION WIDTH 16.3 % (11.5-14.0); WHITE BLOOD COUNT 9.7 10^3/uL (4.0-10.5)
[2016-12-12 05:53] LABS: HEMOGLOBIN 10.3 g/dL (13.5-17.0)
[2016-12-12 06:02] LABS: ANION GAP 9 (5-19); BLOOD UREA NITROGEN 47 mg/dL (7-20); CALCIUM 7.4 mg/dL (8.4-10.2); CARBON DIOXIDE 26 mmol/L (22-30); CHLORIDE 99 mmol/L (98-107); GLUCOSE 107 mg/dL (75-110); MAGNESIUM 2.1 mg/dL (1.6-2.3); POTASSIUM 3.3 mmol/L (3.6-5.0); SODIUM 133.8 mmol/L (137-145)
[2016-12-12 06:06] LABS: BAND NEUTROPHILS % (MANUAL) 2 % (3-5); BASOPHILS % (MANUAL) 0 % (0-2); EOSINOPHILS % (MANUAL) 0 % (0-6); LYMPHOCYTES % (MANUAL) 2 % (13-45); TOTAL CELLS COUNTED 100
[2016-12-12 06:09] LABS: ANISOCYTOSIS 1+; OVALOCYTES 1+; POIKILOCYTOSIS SLIGHT; POLYCHROMASIA SLIGHT
[2016-12-12] MEDS ORDERED: ENOXAPARIN SODIUM INJ 30 MG/0.3 ML DISP.SYRIN SUBCUT SCH (08:00)
[2016-12-12] MEDS ORDERED: POTASSIUM CHLORIDE 10 MEQ TABLET.SA PO SCH (10:00)
[2016-12-12] MEDS ORDERED: (PENDING PHARMACY ID) (Levothyroxine Sodium [Synthroid] 175 MCG) PO SCH (10:00)
[2016-12-12] MEDS ORDERED: (PENDING PHARMACY ID) (Amiodarone Hcl [Amiodarone Hcl] 200 MG) PO SCH (10:00)
[2016-12-12] MEDS: METOPROLOL TARTRATE 50 MG TABLET PO SCH (11:03)
[2016-12-12] MEDS: APIXABAN 5 MG TABLET PO SCH ×2 (11:08→18:48)
[2016-12-12] MEDS: POTASSIUM CHLORIDE 10 MEQ TABLET.SA PO SCH ×2 (11:08→22:04)
[2016-12-12] MEDS: LEVOTHYROXINE SODIUM 0.075 MG TABLET PO SCH (11:09)
[2016-12-12] MEDS: AMIODARONE HCL 200 MG TABLET PO SCH (11:09)
[2016-12-12] MEDS: LEVOTHYROXINE SODIUM 0.1 MG TABLET PO SCH (11:09)
[2016-12-12] MEDS: ASPIRIN 81 MG TABLET, CHEWABLE PO SCH (11:09)
[2016-12-12] MEDS: CEFTRIAXONE 1 GM/D5W RTU 50 ML IV SCH (11:10)
[2016-12-12] MEDS: NORMAL SALINE 1000 ML 1,000 ML IV PRN (11:14)
--- NOTE | 2016-12-12 11:59 | PDOC PROGRESS REPORT ---
Subjective Progress Note for:: 12/12/16 Subjective:: Patient is seen on morning rounds. He is resting in bed. He is responding appropriately to questions. He denies any further chills or rigors. He denies any shortness of breath or chest pain. He denies any nausea, vomiting or abdominal pain. Rest of the review of systems are negative. Physical Exam Vital Signs: Temp Pulse Resp BP Pulse Ox 97.9 F 81 16 96/54 L 98 12/12/16 03:13 12/12/16 07:00 12/12/16 03:13 12/12/16 03:13 12/12/16 03:13 Intake & Output 12/11/16 12/12/16 12/13/16 06:59 06:59 06:59 Intake Total 2196 Balance 2196 Weight 106.9 kg General appearance: PRESENT: no acute distress, obese, well-developed, well- nourished Head exam: PRESENT: atraumatic, normocephalic Eye exam: PRESENT: conjunctiva pink, EOMI, PERRLA. ABSENT: scleral icterus Ear exam: PRESENT: normal external ear exam Mouth exam: PRESENT: moist, tongue midline Neck exam: ABSENT: carotid bruit, JVD, lymphadenopathy, thyromegaly Respiratory exam: PRESENT: clear to auscultation jaycee. ABSENT: rales, rhonchi, wheezes Cardiovascular exam: PRESENT: RRR. ABSENT: diastolic murmur, rubs, systolic murmur Pulses: PRESENT: normal dorsalis pedis pul Vascular exam: PRESENT: normal capillary refill GI/Abdominal exam: PRESENT: normal bowel sounds, soft. ABSENT: distended, guarding, mass, organolmegaly, rebound, tenderness Rectal exam: PRESENT: deferred Neurological exam: PRESENT: alert, awake, oriented to person, oriented to place , CN II-XII grossly intact, other - some mild baseline confusion Psychiatric exam: PRESENT: appropriate affect, normal mood. ABSENT: homicidal ideation, suicidal ideation Skin exam: PRESENT: other Results Laboratory Results: 12/12/16 05:25 12/12/16 05:25 12/12/16 12/12/16 05:25 05:25 WBC 9.7 RBC 3.34 L Hgb 10.3 L D Hct 30.7 L MCV 92 MCH 30.9 MCHC 33.6 RDW 16.3 H Plt Count 215 Seg Neutrophils % Not Reportable Lymphocytes % Not Reportable Monocytes % Not Reportable Eosinophils % Not Reportable Basophils % Not Reportable Absolute Neutrophils Not Reportable Absolute Lymphocytes Not Reportable Absolute Monocytes Not Reportable Absolute Eosinophils Not Reportable Absolute Basophils Not Reportable Sodium 133.8 L Potassium 3.3 L Chloride 99 Carbon Dioxide 26 Anion Gap 9 BUN 47 H Creatinine 1.70 H Est GFR ( Amer) 47 L Est GFR (Non-Af Amer) 39 L Glucose 107 Calcium 7.4 L Magnesium 2.1 Impressions: Chest X-Ray 12/11/16 15:01 IMPRESSION: Chronic lung changes. Minimal right upper lobe pneumonia cannot be ruled out. Assessment & Plan - Diagnosis (1) Sepsis Qualifiers: Sepsis type: sepsis due to unspecified organism Qualified Code(s): A41.9 - Sepsis, unspecified organism Is this a current diagnosis for this admission?: YesPlan: Patient is no longer tachycardic or hypotensive. Rigors have ceased. Fever has resolved. One out of 2 blood cultures positive for gram negative rods. Will continue IV antibiotics (2) Fever and chills Is this a current diagnosis for this admission?: YesPlan: Resolved (3) Urinary tract infection Qualifiers: Urinary tract infection type: site unspecified Hematuria presence: without hematuria Qualified Code(s): N39.0 - Urinary tract infection, site not specified Is this a current diagnosis for this admission?: YesPlan: IV ceftriaxone, urine cultures and blood cultures pending (4) Acute kidney injury Is this a current diagnosis for this admission?: YesPlan: Patient with history of CKD3 had doubling of BUN/CR from one week ago secondary to hypovolemia from uti, possible bacteremia. He will be fluid resuscitated. (5) Leukocytosis Qualifiers: Leukocytosis type: bandemia Qualified Code(s): D72.825 - Bandemia Is this a current diagnosis for this admission?: Yes (6) Atrial fibrillation with controlled ventricular response Is this a current diagnosis for this admission?: YesPlan: Continue home medications and elequis (7) Hypokalemia Is this a current diagnosis for this admission?: YesPlan: Potassium is repleted (8) Hypothyroidism (acquired) Is this a current diagnosis for this admission?: Yes - Time Time Spent with patient: 25-34 minutes Critical Time spent with patient: 15-24 minutes Medications reviewed and adjusted accordingly: Yes Anticipated discharge: Home with Homehealth
[2016-12-12] MEDS: TAMSULOSIN HCL 0.4 MG CAP.SR.24H PO SCH (22:04)
[2016-12-13] MEDS: NORMAL SALINE 1000 ML 1,000 ML IV PRN (03:50)
[2016-12-13 05:15] LABS: ABSOLUTE EOSINOPHILS # (AUTO) 0.1 10^3/uL (0.0-0.6); ABSOLUTE LYMPHOCYTES (AUTO) 0.4 10^3/uL (0.5-4.7); ABSOLUTE MONOCYTES (AUTO) 0.7 10^3/uL (0.1-1.4); ABSOLUTE NEUT (AUTO) 7.2 10^3/uL (1.7-8.2); BASOPHILS % (AUTO) 0.3 % (0-2); EOSINOPHILS % (AUTO) 0.8 % (0-6); HEMATOCRIT 29.5 % (37.9-51.0); HEMOGLOBIN 10.1 g/dL (13.5-17.0); HGB HCT DIFFERENCE 0.8; LYMPHOCYTES % (AUTO) 5.1 % (13-45); MEAN CORPUSCULAR HEMOGLOBIN 31.3 pg (27.0-33.4); MEAN CORPUSCULAR HGB CONC 34.2 g/dL (32.0-36.0); MEAN CORPUSCULAR VOLUME 92 fl (80-97); MONOCYTES % (AUTO) 8.3 % (3-13); RED BLOOD COUNT 3.22 10^6/uL (4.35-5.55); RED CELL DISTRIBUTION WIDTH 16.3 % (11.5-14.0); SEGMENTED NEUTROPHILS % (AUTO) 85.5 % (42-78); WHITE BLOOD COUNT 8.4 10^3/uL (4.0-10.5)
[2016-12-13 05:26] LABS: ANION GAP 7 (5-19); BLOOD UREA NITROGEN 31 mg/dL (7-20); CALCIUM 7.2 mg/dL (8.4-10.2); CARBON DIOXIDE 24 mmol/L (22-30); CHLORIDE 103 mmol/L (98-107); GLUCOSE 89 mg/dL (75-110); POTASSIUM 3.8 mmol/L (3.6-5.0)
[2016-12-13] MEDS: LEVOTHYROXINE SODIUM 0.1 MG TABLET PO SCH (09:00)
[2016-12-13] MEDS: ASPIRIN 81 MG TABLET, CHEWABLE PO SCH (09:00)
[2016-12-13] MEDS: APIXABAN 5 MG TABLET PO SCH ×2 (09:00→17:08)
[2016-12-13] MEDS: AMIODARONE HCL 200 MG TABLET PO SCH (09:00)
[2016-12-13] MEDS: LEVOTHYROXINE SODIUM 0.075 MG TABLET PO SCH (09:00)
[2016-12-13] MEDS: RIVASTIGMINE 4.6 MG/24 HR PATCH.TD24 TD SCH (09:01)
[2016-12-13] MEDS: CEFTRIAXONE 1 GM/D5W RTU 50 ML IV SCH (09:01)
[2016-12-13] MEDS: METOPROLOL TARTRATE 50 MG TABLET PO SCH (09:02)
--- NOTE | 2016-12-13 10:54 | PDOC PROGRESS REPORT ---
Subjective Subjective:: Patient is seen on morning rounds. He is resting in bed. He is responding appropriately to questions. He states he feels much better than when he came in. He denies any shortness of breath or chest pain. He denies any nausea, vomiting or abdominal pain. He had to be straight cathed last evening due to inability to void Rest of the review of systems are negative. Physical Exam Vital Signs: Temp Pulse Resp BP Pulse Ox 97.7 F 69 20 97/57 L 100 12/13/16 07:00 12/13/16 07:00 12/13/16 07:00 12/13/16 07:00 12/13/16 07:00 Intake & Output 12/12/16 12/13/16 12/14/16 06:59 06:59 06:59 Intake Total 2196 4214 Balance 2196 4214 Weight 106.9 kg 104.4 kg General appearance: PRESENT: no acute distress, obese, well-developed, well- nourished Head exam: PRESENT: atraumatic, normocephalic Eye exam: PRESENT: conjunctiva pink, EOMI, PERRLA. ABSENT: scleral icterus Ear exam: PRESENT: normal external ear exam Mouth exam: PRESENT: moist, tongue midline Neck exam: ABSENT: carotid bruit, JVD, lymphadenopathy, thyromegaly Respiratory exam: PRESENT: clear to auscultation jaycee. ABSENT: rales, rhonchi, wheezes Cardiovascular exam: PRESENT: RRR. ABSENT: diastolic murmur, rubs, systolic murmur Pulses: PRESENT: normal dorsalis pedis pul Vascular exam: PRESENT: normal capillary refill GI/Abdominal exam: PRESENT: normal bowel sounds, soft. ABSENT: distended, guarding, mass, organolmegaly, rebound, tenderness Rectal exam: PRESENT: deferred Extremities exam: PRESENT: full ROM. ABSENT: calf tenderness, clubbing, pedal edema Neurological exam: PRESENT: alert, altered, oriented to person, CN II-XII grossly intact Psychiatric exam: PRESENT: appropriate affect, normal mood. ABSENT: homicidal ideation, suicidal ideation Skin exam: PRESENT: dry - dermatitis on scalp, warm, other Results Laboratory Results: 12/13/16 04:31 12/13/16 04:31 12/13/16 12/13/16 04:31 04:31 WBC 8.4 RBC 3.22 L Hgb 10.1 L Hct 29.5 L MCV 92 MCH 31.3 MCHC 34.2 RDW 16.3 H Plt Count 216 Seg Neutrophils % 85.5 H Lymphocytes % 5.1 L Monocytes % 8.3 Eosinophils % 0.8 Basophils % 0.3 Absolute Neutrophils 7.2 Absolute Lymphocytes 0.4 L Absolute Monocytes 0.7 Absolute Eosinophils 0.1 Absolute Basophils 0.0 Sodium 134.0 L Potassium 3.8 Chloride 103 Carbon Dioxide 24 Anion Gap 7 BUN 31 H Creatinine 1.20 Est GFR ( Amer) > 60 Est GFR (Non-Af Amer) 58 L Glucose 89 Calcium 7.2 L Impressions: Chest X-Ray 12/11/16 15:01 IMPRESSION: Chronic lung changes. Minimal right upper lobe pneumonia cannot be ruled out. Assessment & Plan - Diagnosis (1) Sepsis Qualifiers: Sepsis type: sepsis due to unspecified organism Qualified Code(s): A41.9 - Sepsis, unspecified organism Is this a current diagnosis for this admission?: YesPlan: Resolved with antibiotics and fluids (2) Fever and chills Is this a current diagnosis for this admission?: YesPlan: Resolved after 24 hrs of antibiotics (3) Urinary tract infection Qualifiers: Urinary tract infection type: site unspecified Hematuria presence: without hematuria Qualified Code(s): N39.0 - Urinary tract infection, site not specified Is this a current diagnosis for this admission?: YesPlan: IV ceftriaxone, urine cultures and blood cultures pending (4) Acute kidney injury Is this a current diagnosis for this admission?: YesPlan: Resolving. Secondary to prerenal volume depletion from infection. Will stop IV hydration today (5) Leukocytosis Qualifiers: Leukocytosis type: bandemia Qualified Code(s): D72.825 - Bandemia Is this a current diagnosis for this admission?: YesPlan: Resolved with antibiotic therapy (6) Atrial fibrillation with controlled ventricular response Is this a current diagnosis for this admission?: YesPlan: Continue home medications and elequis (7) Hypokalemia Is this a current diagnosis for this admission?: YesPlan: Potassium is repleted (8) Hypothyroidism (acquired) Is this a current diagnosis for this admission?: YesPlan: Continue synthroid (9) Dementia Qualifiers: Dementia type: Alzheimer's disease Alzheimer's disease onset: unspecified onset Dementia behavioral disturbance: without behavioral disturbance Qualified Code(s): G30.9 - Alzheimer's disease, unspecified; F02.80 - Dementia in other diseases classified elsewhere without behavioral disturbance Is this a current diagnosis for this admission?: YesPlan: Continue exelon patch - Time Time Spent with patient: 25-34 minutes Critical Time spent with patient: 15-24 minutes Anticipated discharge: SNF Within: within 48 hours
[2016-12-13] MEDS: TAMSULOSIN HCL 0.4 MG CAP.SR.24H PO SCH (22:08)
[2016-12-14 06:05] LABS: ANION GAP 6 (5-19); BLOOD UREA NITROGEN 20 mg/dL (7-20); CALCIUM 7.2 mg/dL (8.4-10.2); CARBON DIOXIDE 24 mmol/L (22-30); CHLORIDE 102 mmol/L (98-107); CREATININE RESULT 1.08 mg/dL (0.52-1.25); GLUCOSE 94 mg/dL (75-110); POTASSIUM 3.7 mmol/L (3.6-5.0); SODIUM 132.4 mmol/L (137-145)
[2016-12-14 06:14] LABS: HEMATOCRIT 31.6 % (37.9-51.0); HEMOGLOBIN 10.5 g/dL (13.5-17.0); HGB HCT DIFFERENCE -0.1; MEAN CORPUSCULAR HEMOGLOBIN 30.7 pg (27.0-33.4); MEAN CORPUSCULAR HGB CONC 33.3 g/dL (32.0-36.0); MEAN CORPUSCULAR VOLUME 92 fl (80-97); RED BLOOD COUNT 3.42 10^6/uL (4.35-5.55); WHITE BLOOD COUNT 9.2 10^3/uL (4.0-10.5)
[2016-12-14 06:42] LABS: BAND NEUTROPHILS % (MANUAL) 4 % (3-5); BASOPHILS % (MANUAL) 0 % (0-2); EOSINOPHILS % (MANUAL) 1 % (0-6); LYMPHOCYTES % (MANUAL) 6 % (13-45); TOTAL CELLS COUNTED 100
[2016-12-14 06:45] LABS: ANISOCYTOSIS 1+; BURR CELLS SLIGHT; OVALOCYTES SLIGHT; POIKILOCYTOSIS SLIGHT; TOXIC GRANULATION SLIGHT
[2016-12-14] MEDS ORDERED: CALCIUM GLUCONATE 1000 MG/10 ML INJ IV ONE (07:29)
[2016-12-14] MEDS ORDERED: ONDANSETRON HCL INJ/PF 4 MG/2 ML SDV IV PRN (09:17)
--- NOTE | 2016-12-14 09:38 | PDOC PROGRESS REPORT ---
Subjective Progress Note for:: 12/14/16 Subjective:: Patient is seen on morning rounds. He is resting in bed. He is responding appropriately to questions. He states he feels much better than when he came in. He denies any shortness of breath or chest pain. He denies any nausea, vomiting or abdominal pain. He has not had any further difficulty urinating over night. He denies any pain at the present time. Rest of the review of systems are negative. Physical Exam Vital Signs: Temp Pulse Resp BP Pulse Ox 98.4 F 81 20 134/54 H 95 12/14/16 07:53 12/14/16 07:53 12/14/16 07:53 12/14/16 07:53 12/14/16 07:53 Intake & Output 12/13/16 12/14/16 12/15/16 06:59 06:59 06:59 Intake Total 4214 1585 Balance 4214 1585 Weight 104.4 kg 108.2 kg General appearance: PRESENT: no acute distress, obese, well-developed, well- nourished Head exam: PRESENT: atraumatic, normocephalic Eye exam: PRESENT: conjunctiva pink, EOMI, PERRLA. ABSENT: scleral icterus Ear exam: PRESENT: normal external ear exam Mouth exam: PRESENT: moist, tongue midline Neck exam: ABSENT: carotid bruit, JVD, lymphadenopathy, thyromegaly Respiratory exam: PRESENT: clear to auscultation jaycee, symmetrical, unlabored. ABSENT: rales, rhonchi, wheezes Cardiovascular exam: PRESENT: irregular rhythm, +S1, +S2. ABSENT: diastolic murmur, rubs, systolic murmur Pulses: PRESENT: normal carotid pulses, normal radial pulses Vascular exam: PRESENT: normal capillary refill GI/Abdominal exam: PRESENT: normal bowel sounds, soft. ABSENT: distended, guarding, mass, organolmegaly, rebound, tenderness Rectal exam: PRESENT: deferred Extremities exam: PRESENT: full ROM. ABSENT: calf tenderness, clubbing, pedal edema Musculoskeletal exam: PRESENT: full ROM Neurological exam: PRESENT: alert, oriented to person, oriented to place, CN II- XII grossly intact Psychiatric exam: PRESENT: appropriate affect, normal mood. ABSENT: homicidal ideation, suicidal ideation Skin exam: PRESENT: other Results Laboratory Results: 12/14/16 04:53 12/14/16 04:53 12/14/16 12/14/16 04:53 04:53 WBC 9.2 RBC 3.42 L Hgb 10.5 L Hct 31.6 L MCV 92 MCH 30.7 MCHC 33.3 RDW 17.0 H Plt Count 231 Seg Neutrophils % Not Reportable Lymphocytes % Not Reportable Monocytes % Not Reportable Eosinophils % Not Reportable Basophils % Not Reportable Absolute Neutrophils Not Reportable Absolute Lymphocytes Not Reportable Absolute Monocytes Not Reportable Absolute Eosinophils Not Reportable Absolute Basophils Not Reportable Sodium 132.4 L Potassium 3.7 Chloride 102 Carbon Dioxide 24 Anion Gap 6 BUN 20 Creatinine 1.08 Est GFR ( Amer) > 60 Est GFR (Non-Af Amer) > 60 Glucose 94 Calcium 7.2 L Impressions: Chest X-Ray 12/11/16 15:01 IMPRESSION: Chronic lung changes. Minimal right upper lobe pneumonia cannot be ruled out. Assessment & Plan - Diagnosis (1) Sepsis Qualifiers: Sepsis type: sepsis due to unspecified organism Qualified Code(s): A41.9 - Sepsis, unspecified organism Is this a current diagnosis for this admission?: YesPlan: Tachycardia, fever and hypotension resolved with IV fluids and antibiotics. Patient with gram negative bacteremia and uti (2) Fever and chills Is this a current diagnosis for this admission?: YesPlan: Resolved after 24 hrs of antibiotics (3) Urinary tract infection Qualifiers: Urinary tract infection type: site unspecified Hematuria presence: without hematuria Qualified Code(s): N39.0 - Urinary tract infection, site not specified Is this a current diagnosis for this admission?: YesPlan: IV ceftriaxone, urine cultures and blood cultures pending (4) Acute kidney injury Is this a current diagnosis for this admission?: YesPlan: Resolved with IV hydration secondary to prerenal volume depletion from infection (5) Leukocytosis Qualifiers: Leukocytosis type: bandemia Qualified Code(s): D72.825 - Bandemia Is this a current diagnosis for this admission?: YesPlan: Resolved with antibiotic therapy (6) Atrial fibrillation with controlled ventricular response Is this a current diagnosis for this admission?: YesPlan: Continue home medications and elequis (7) Hypokalemia Is this a current diagnosis for this admission?: YesPlan: Potassium is repleted (8) Hypothyroidism (acquired) Is this a current diagnosis for this admission?: YesPlan: Continue synthroid (9) Dementia Qualifiers: Dementia type: Alzheimer's disease Alzheimer's disease onset: unspecified onset Dementia behavioral disturbance: without behavioral disturbance Qualified Code(s): G30.9 - Alzheimer's disease, unspecified; F02.80 - Dementia in other diseases classified elsewhere without behavioral disturbance Is this a current diagnosis for this admission?: YesPlan: Continue exelon patch - Time Time Spent with patient: 25-34 minutes Critical Time spent with patient: 15-24 minutes Medications reviewed and adjusted accordingly: Yes Anticipated discharge: SNF
[2016-12-14] MEDS ORDERED: FUROSEMIDE 80 MG TABLET PO SCH (10:00)
[2016-12-14] MEDS ORDERED: (PENDING PHARMACY ID) (Potassium Chloride [K-Tab Er] 20 MEQ) PO SCH (10:00)
[2016-12-14] MEDS: METOPROLOL TARTRATE 50 MG TABLET PO SCH (10:53)
[2016-12-14] MEDS: LEVOTHYROXINE SODIUM 0.1 MG TABLET PO SCH (10:53)
[2016-12-14] MEDS: LEVOTHYROXINE SODIUM 0.075 MG TABLET PO SCH (10:53)
[2016-12-14] MEDS: APIXABAN 5 MG TABLET PO SCH ×2 (10:54→17:15)
[2016-12-14] MEDS: POTASSIUM CHLORIDE 10 MEQ TABLET.SA PO SCH (10:54)
[2016-12-14] MEDS: RIVASTIGMINE 4.6 MG/24 HR PATCH.TD24 TD SCH (10:54)
[2016-12-14] MEDS: AMIODARONE HCL 200 MG TABLET PO SCH (10:54)
[2016-12-14] MEDS: CEFTRIAXONE 1 GM/D5W RTU 50 ML IV SCH (10:54)
[2016-12-14] MEDS: ASPIRIN 81 MG TABLET, CHEWABLE PO SCH (10:54)
[2016-12-14] MEDS: CEFUROXIME 500 MG TABLET PO SCH (21:05)
[2016-12-14] MEDS: TAMSULOSIN HCL 0.4 MG CAP.SR.24H PO SCH (21:05)
[2016-12-15] MEDS: APIXABAN 5 MG TABLET PO SCH ×2 (09:39→22:23)
[2016-12-15] MEDS: RIVASTIGMINE 4.6 MG/24 HR PATCH.TD24 TD SCH (09:40)
[2016-12-15] MEDS: LEVOTHYROXINE SODIUM 0.075 MG TABLET PO SCH (09:40)
[2016-12-15] MEDS: CEFUROXIME 500 MG TABLET PO SCH ×2 (09:41→22:23)
[2016-12-15] MEDS: LEVOTHYROXINE SODIUM 0.1 MG TABLET PO SCH (09:41)
[2016-12-15] MEDS: POTASSIUM CHLORIDE 10 MEQ TABLET.SA PO SCH (09:41)
[2016-12-15] MEDS: FUROSEMIDE 40 MG TABLET PO SCH (09:42)
[2016-12-15] MEDS: ASPIRIN 81 MG TABLET, CHEWABLE PO SCH (09:42)
[2016-12-15] MEDS: METOPROLOL TARTRATE 50 MG TABLET PO SCH (09:42)
[2016-12-15] MEDS: AMIODARONE HCL 200 MG TABLET PO SCH (09:43)
[2016-12-15] MEDS ORDERED: ACETAMINOPHEN 325 MG TABLET PO PRN (10:11)
[2016-12-15] MEDS ORDERED: (PENDING PHARMACY ID) (Levothyroxine Sodium [Synthroid] 175 MCG) PO SCH (10:15)
[2016-12-15] MEDS ORDERED: ONDANSETRON 4 MG TAB.RAPDIS PO PRN (10:26)
--- NOTE | 2016-12-15 10:56 | PROGRESS NOTE E ---
Progress Note NAME: ANICETO LAYNE : 1935 AGE: 81Y DATE: 12/15/2016 ROOM: 429 SUBJECTIVE: The patient is currently sitting out of bed to the bedside chair. He states he does feel better today. He denies any nausea, vomiting, diarrhea. No shortness of breath, dizziness, chest pain. No fevers or chills. The patient has been afebrile. His blood pressure has been in a good range. The patient does not voice any other concerns at this time. REVIEW OF SYSTEMS: The rest of the review of systems is negative. MEDICATIONS: Medications have been reviewed. OBJECTIVE: GENERAL: The patient is an 81-year-old male who is awake, alert, and oriented to person, place, time, and situation. He is verbal and conversational. He does not appear to be in any acute distress. VITAL SIGNS: Temperature is 97.5, pulse 67, respirations 18, blood pressure 116/51, and oxygen saturation is 95% on 1 L nasal cannula. SKIN: Warm and dry. There is no rash and he is not diaphoretic. HEENT: Pupils are equal, round and reactive to light and accommodation. Conjunctiva is pink. There is no JVP. CARDIOVASCULAR: Heart is regular. There is no murmur or rub. CHEST: Clear, symmetrical, unlabored. ABDOMEN: Soft, nontender, nondistended. BACK: No CVA tenderness or sacral edema. EXTREMITIES: No clubbing, cyanosis, edema. GENITOURINARY: Armijo is draining clear yellow urine. PSYCHIATRIC: Appropriate affect. Pleasant mood. DIAGNOSTICS: Lab values are as follows. Hematology obtained on 12/14/2016: WBCs are 9.2, hemoglobin is 10.5, hematocrit is 31.6, platelet count is 231,000. Chemistry obtained on 12/14/2016: Sodium is 132, potassium 3.7, chloride is 102, carbon dioxide 24, BUN 20, creatinine 1.08, glucose 94, calcium is 7.2. Microbiology: Blood cultures obtained on 12/11/2016 reveal E. coli. Urine culture obtained on 12/11/2016 reveal E. coli and Proteus. IMPRESSION AND PLAN: 1. E. COLI AND PROTEUS URINARY TRACT INFECTION. Both of these are sensitive to Ceftin. Will continue this at this time. Overall the patient's symptoms appear improved. 2. E. COLI BACTEREMIA SECONDARY TO #1. Will repeat blood cultures today and continue antibiotics and follow. 3. SEPSIS SECONDARY TO THE ABOVE. Fever, tachycardia and hypertension resolved with IV fluids and antibiotics. 4. ACUTE KIDNEY INJURY, RESOLVED WITH IV HYDRATION. 5. ATRIAL FIBRILLATION WITH CONTROLLED VENTRICULAR RESPONSE. Will continue the patient's home medications as well as Eliquis. 6. HYPOKALEMIA. This resolved with repletion. 7. HYPOTHYROIDISM. Will continue Synthroid. 8. DEMENTIA. Will continue the patient's home medications. 9. URINARY RETENTION. May possibly be due to UTI or the UTI may be causing the urinary retention; however, the patient does not have a chronic Armijo at the long term. Will give a dose of Flomax now and remove Armijo. Bladder scan every 6 hours and cath if residual greater than 300. If this has to be replaced, will follow up with Urology on an outpatient basis. DISPOSITION: THE PATIENT IS A FULL CODE. Pending the patient's symptomatology and diagnostic findings, will re-evaluate in the a.m. for discharge. Time spent on this followup, including assessment/plan, physical examination, and patient education, is 25 minutes. DICTATING PHYSICIAN: CATE HUMPHRIES NP [id number] PHY#: [id number] ID: [id number] JOB#: [id number] ACCT: [id number] cc: >
[2016-12-15] MEDS ORDERED: TAMSULOSIN HCL 0.4 MG CAP.SR.24H PO ONE (11:00)
[2016-12-15] MEDS ORDERED: DOCUSATE SODIUM 100 MG CAPSULE PO SCH (22:00)
[2016-12-15] MEDS ORDERED: TAMSULOSIN HCL 0.4 MG CAP.SR.24H PO SCH (22:00)
--- NOTE | 2016-12-16 07:59 | TRANSFER SUMMARY E ---
Transfer Summary NAME: ANICETO LAYNE : 1935 AGE: 81Y ADMITTED: 12/11/2016 TRANSFERRED: 12/16/2016 DATE OF TRANSFER: 12/15/2016 RECEIVING FACILITY: [facility]. CODE STATUS: FULL CODE. PRIMARY CARE PROVIDER: OK. TRANSFER DIAGNOSES: 1. Escherichia coli and proteus. 2. Urinary tract infection. 3. Escherichia coli bacteremia, secondary to #1. 4. Sepsis, secondary to the above. 5. Acute kidney injury, which has resolved. 6. Atrial fibrillation with controlled ventricular response. 7. Hypokalemia, which has resolved. 8. Hypothyroidism. 9. Dementia. 10. Urinary retention. TRANSFER MEDICATIONS: Include: 1. Ceftin 500 mg p.o. q. 12 hours, 10 tablets. 2. Tylenol 650 mg p.o. q. 4 hours p.r.n. 3. Amiodarone 200 mg p.o. daily. 4. Eliquis 5 mg p.o. q. 12 hours. 5. Aspirin 81 mg p.o. daily. 6. Colace 100 mg p.o. q. hour sleep. 7. Vitamin B-complex 1 tablet p.o. daily. 8. Lasix 80 mg p.o. daily. 9. Synthroid 175 mcg p.o. daily. 10. Metoprolol-XL 50 mg p.o. daily. 11. Potassium 20 mEq p.o. daily. 12. Exelon patch 4.6 mg 1 patch transdermally daily. 13. Flomax 0.4 mg p.o. q. evening. ACTIVITY: As per facility standard, as tolerated. DIET: Cardiac. HISTORY OF PRESENT ILLNESS: The patient is an 81-year-old male with a past medical history of early dementia and atrial fibrillation. The patient presented to the Emergency Department via EMS from [facility] due to "convulsions." They apparently have been witnessed by nursing staff. The patient according to ER documentation had possible convulsions the night before being transferred. After shift change the morning at the facility, new nurse felt the patient needed to be transported to the Emergency Department. The patient stated upon arrival that he felt fine. His only complaint was being very thirsty. The patient had been seen in our facility on 12/07/16 for bleeding from a catheter site. The patient followed up with Dr. Ellsworth at [facility] and had his Armijo removed at that point. The patient had evidence of UTI on urinalysis including leukocyte esterase and was also noted to be tachycardic with fever and with hypotension. The patient was unable to provide any history of his illness due to his dementia. The patient has been received scheduled DuoNebs which may have contributed to a retention. The patient was referred to the hospitalist for admission and management. HOSPITAL COURSE: The patient was admitted to continuous telemetry unit. The patient did have a Armijo placed. The patient was not retaining a significant amount of urine at that time. DuoNebs were stopped and the patient tolerated. However, the patient was treated with Rocephin and the patient's urine culture did reveal proteus as well as E. coli. The patient did have a set of blood cultures, also positive for E. coli. The patient completed 3 days of sensitive cephalosporin and was transitioned to oral Ceftin, for which the patient has tolerated. The patient's repeat set of blood cultures are unremarkable at this time and the patient's white count has normalized and the patient is asymptomatic. The patient's Armijo has been removed with intermittent bladder scans and the patient does not appear to be retaining any significant of urine. The patient is able to void without issue and is actually continent at this time. Recommendations have been made for the patient to followup with his urologist, Dr. Ellsworth and to continue to be monitored closely to ensure that the patient is voiding adequately. The patient's symptoms have completely resolved and he is quite eager for discharge. DIAGNOSTICS: Lab values are as follows: Hematology obtained on 12/14/16: WBC is , hemoglobin is 10.5, hematocrit is 31.6, platelet count is 231,000. Chemistry obtained on 12/14/16: Sodium is 132, potassium 4.7, chloride is 102, carbon dioxide 24, BUN 20, creatinine is 1.08, glucose 94, calcium 7.2, magnesium is 2.1, bilirubin 1.5, AST 37, ALT is 50, alk phos 34, total protein 5.9, and albumin 3.1. Urinalysis panel on 12/11/16: Cloudy with dark yellow appearance, pH is 8.0, specific gravity 1.011, protein of 100, glucose negative, ketones negative, occult blood small, nitrite negative, bilirubin negative, urobilinogen is negative, leukocyte esterase is large, wbc's greater than 182, rbc's 7, casts 5, bacteria 1. Microbiology, blood cultures obtained on 12/11/16 has grown E. coli. Urine culture obtained on 12/11/16 reveals E. coli and Proteus mirabilis, which is sensitive to cephalosporin. Blood cultures obtained on 12/15/16 revealed no growth. Chest x-ray obtained on 12/11/16 reveals chronic lung changes. PHYSICAL EXAMINATION: GENERAL: On examination, the patient is a well-developed, well-nourished, 81-year-old male who is awake, alert. He is oriented to person, place, time, and situation. He is a little delayed. He does not appear to be in any acute distress. VITAL SIGNS: Temperature is 97.5, pulse 67, respirations 17, blood pressure is 118/47, oxygen saturation 100% on room air. SKIN: Warm and dry. No rash. Not diaphoretic. HEENT: Pupils equal, round, and reactive to light and accommodation. Conjunctivae are pink. There is no JVP. CARDIOVASCULAR SYSTEM: Heart is regular. There is no murmur or rub. CHEST: Clear, symmetrical, unlabored. ABDOMEN: Soft, nontender, nondistended. BACK: No CVA tenderness or sacral edema. EXTREMITIES: No clubbing, cyanosis, or edema. PSYCHIATRIC: Appropriate affect, pleasant mood. TRANSFER PLANNIN. The patient is to follow up with his urologist within 1 week for hospital followup. Time spent on this transfer including assessment, plan, physical examination, patient education, and resource alignment is 35 minutes. DICTATING PHYSICIAN: CATE HUMPHRIES NP [id number] PHY#: [id number] ID: [id number] JOB#: [id number] ACCT: [id number] cc:CATE HUMPHRIES NP > [facility]
[2016-12-16] MEDS: POTASSIUM CHLORIDE 10 MEQ TABLET.SA PO SCH (09:59)
[2016-12-16] MEDS: CEFUROXIME 500 MG TABLET PO SCH (09:59)
[2016-12-16] MEDS ORDERED: LEVOTHYROXINE SODIUM 0.075 MG TABLET PO SCH (10:00)
[2016-12-16] MEDS: APIXABAN 5 MG TABLET PO SCH (10:00)
[2016-12-16] MEDS ORDERED: FOLIC ACID/VITAMIN B COMP W-C CAPSULE PO SCH (10:00)
[2016-12-16] MEDS ORDERED: METOPROLOL TARTRATE 50 MG TABLET PO SCH (10:00)
[2016-12-16] MEDS ORDERED: FOLIC ACID PO SCH (10:00)
[2016-12-16] MEDS ORDERED: ASPIRIN 81 MG TABLET, CHEWABLE PO SCH (10:00)
[2016-12-16] MEDS ORDERED: AMIODARONE HCL 200 MG TABLET PO SCH (10:00)
[2016-12-16] MEDS ORDERED: LEVOTHYROXINE SODIUM 0.1 MG TABLET PO SCH (10:00)
[2016-12-16] MEDS ORDERED: VIT BCOMP C PO SCH (10:00)
[2016-12-16] MEDS: RIVASTIGMINE 4.6 MG/24 HR PATCH.TD24 TD SCH (10:02)
[2016-12-16] MEDS: FUROSEMIDE 40 MG TABLET PO SCH (10:02)
[2016-12-16 17:19] VITALS: BP 97/40
== END 2016-12-16 17:30 | DRG 872 ==
LOC: ER 08:53 → EH 15:32 → UNDOADMIN 16:57 → EH 16:57 → 4S 17:43
PROVIDERS: ADMIT Family Medicine; ATTEND Family Medicine
DX: A41.51 Sepsis due to Escherichia coli [E. coli] (principal); N17.9 Acute kidney failure, unspecified; N39.0 Urinary tract infection, site not specified; B96.4 Proteus (mirabilis) (morganii) as the cause of diseases classified elsewhere; I48.91 Unspecified atrial fibrillation; E87.6 Hypokalemia; E03.9 Hypothyroidism, unspecified; R33.9 Retention of urine, unspecified; I25.10 Atherosclerotic heart disease of native coronary artery without angina pectoris; G30.9 Alzheimer's disease, unspecified; F02.80 Dementia in other diseases classified elsewhere, unspecified severity, without behavioral disturbance, psychotic disturbance, mood disturbance, and anxiety; M19.90 Unspecified osteoarthritis, unspecified site; Z79.82 Long term (current) use of aspirin; Z79.01 Long term (current) use of anticoagulants; Z79.899 Other long term (current) drug therapy; Z95.1 Presence of aortocoronary bypass graft; Z87.891 Personal history of nicotine dependence
CPT/HCPCS: 36415; 71010; 80048; 80053; 81001; 83735; 85025; 87040; 87077; 87086; 87088; 87186; 93005; 93010; 96361; 96365; 96367; 99291; J0610; J0696; J3480; J3490; J7030